=== PATIENT | male | born 1945 | race Caucasian/White ===

== ENCOUNTER 2020-09-07 11:09 | Outpatient (REF) | payer MEDICARE, SELFPAY ==
--- NOTE | ~2020-09-07 | XR_ITS ---
EXAMINATION: CHEST AND RIGHT RIB X-RAYS CLINICAL INFORMATION: Chest pain COMPARISON: Previous chest x-ray September 2006 TECHNIQUE: 2 views of the chest and 3 views of the right ribs FINDINGS: Chest: The cardiac silhouette does not appear enlarged. The thoracic aorta is slightly tortuous. Hilar and mediastinal contours are otherwise unremarkable. The lungs are clear. There is no pleural effusion or pneumothorax. There are degenerative changes of the thoracic spine. Right RIBS: No rib fracture or bone lesion is seen. XR/XR chest 2V IMPRESSION: No evidence for acute disease in the chest. No rib fracture seen.
--- NOTE | ~2020-09-07 | XR_ITS ---
EXAMINATION: CHEST AND RIGHT RIB X-RAYS CLINICAL INFORMATION: Chest pain COMPARISON: Previous chest x-ray September 2006 TECHNIQUE: 2 views of the chest and 3 views of the right ribs FINDINGS: Chest: The cardiac silhouette does not appear enlarged. The thoracic aorta is slightly tortuous. Hilar and mediastinal contours are otherwise unremarkable. The lungs are clear. There is no pleural effusion or pneumothorax. There are degenerative changes of the thoracic spine. Right RIBS: No rib fracture or bone lesion is seen. XR/XR ribs RT 2V IMPRESSION: No evidence for acute disease in the chest. No rib fracture seen.
== END 2020-09-07 11:10 | disposition home or self-care (01) ==
LOC: HO.XRAY 11:09
PROVIDERS: PCP Internal Medicine; Visit Provider Internal Medicine
DX: R07.89 Other chest pain (principal)
CPT/HCPCS: 71046; 71100

== ENCOUNTER 2020-11-11 13:26 | Outpatient (REF) | payer MEDICARE, SELFPAY ==
--- NOTE | 2020-11-11 15:08 | MHC.AU.AHA ---
Adult Audiological Evaluation Date of Visit: 11/11/20 Reason for Appointment: Audiological evaluation due to concern for decreased hearing. Mr. Booen has a long-standing history of asymmetrical hearing loss, worse in the left ear. He states that the hearing loss in the left ear was first diagnosed in childhood. Mr. Boone believes the hearing in his right is has decreased gradually since his last visit. He denies any changes to his medical history. Previous Hearing Test Results: [facility], 05/19/2018- Mild sloping to severe SNHL in the right ear. Severe to profound mixed hearing loss with no speech discrimination abilities in the left ear. Medical History: Medical History: Unremarkable Medical History Allergies: Lorazepam, tamsulosin Hearing Instrument History- Right Ear: Contracts Officer: Phonak Model: Bolero B50-M Serial Number: [id number] Battery Size: 312 Repair Warranty: 07/30/2021 Loss and Damage Warranty: 07/30/2021 Dispensed By: [facility] Date of Fittin05/19/2018 Hearing Instrument History- Left Ear: Contracts Officer: Phonak Model: CROS-B Serial Number: [id number] Battery Size: 312 Warranty: 07/30/2019 Loss and Damage Warranty: 07/30/2019 Dispensed By: [facility] Date of Fittin05/19/2018 Otoscopy: Right Ear: Unremarkable Left Ear: Unremarkable Tympanometry: Tympanometry performed due to: To assess integrity of the middle ear system Right Ear: Normal Middle Ear System (Type A) Left Ear: Normal Middle Ear System (Type A) Hearing Evaluation: Transducer(s) Used: Insert Earphones, Bone Conduction Method: Conventional Audiometry Stimuli Used: Pure Tones Right Ear: Description of Hearing: Mild sloping to profound sensorineural hearing loss from 250-8000 Hz. Left Ear: Description of Hearing: Severe hearing loss at 250 Hz, sloping to a profound mixed hearing loss from 500-8000 Hz. Speech Recognition Threshold (SRT): Method Used: Monitored Live Voice Stimuli Used: Spondee Words Right Ear: 40 dBHL Left Ear: Could not test- no speech discrimination abilities in the left ear. Word Discrimination: Method: Recorded Lists Word Lists Used: NU-6 Right Ear: 100% at 80 dBHL Left Ear: Could not test- no speech discrimination abilities in the left ear. Comparison: Compared to most recent evaluation: Minor decreases in hearing in the right ear. Stable in the left ear. Recommendations: Audiological re-evaluation in one year. Hearing aid maintenance performed today. Hearing aid(s) reprogrammed with updated test results. Diagnosis: Primary Diagnosis: H90.3 Bilateral Sensorineural Hearing Loss Services Performed: Comprehensive Audiological Evaluation (CPT 65410) Tympanometry (CPT 94663) Signature: Provider: Noemí Mcclellan, CCC-A
== END 2020-11-11 13:27 | disposition home or self-care (01) ==
LOC: HO.SH 13:26
PROVIDERS: Visit Provider Internal Medicine
DX: H90.3 Sensorineural hearing loss, bilateral (principal)
CPT/HCPCS: 92557; 92567

== ENCOUNTER → 2020-12-13 11:07 | Outpatient (BNVA) | payer MEDICARE, SELFPAY | PROVIDERS: PCP Internal Medicine; Visit Provider Internal Medicine | DX: I49.3 Ventricular premature depolarization (principal); R00.2 Palpitations | CPT/HCPCS: 93005; 99202 ==

== ENCOUNTER → 2020-12-27 13:57 | Outpatient (REF) | payer MEDICARE, SELFPAY ==
--- NOTE | 2020-12-27 14:00 | CA_ITS ---
Transthoracic Echocardiogram Patient (Last, First, Middle): Adan Boone L Gender: Male Date of : 1945 Age: 75 Procedure Date: 12/27/2020 Procedure Type: Transthoracic Echocardiogram Location: OP Height: 175.26 cm Weight: 81.65 kg BSA: 1.98 m2 Heart Rate: bpm BP: 120 / 70 mmHg [place] Bottom Maker: DSCrystal Referring MD: Janes Mullins MD Symptoms: R00.2 - Palpitations Study Quality: Good ECG Rhythm: Sinus Conclusions: - The left ventricular systolic function is normal. The visually estimated ejection fraction is between 65-70%. - No obvious valvular pathology seen on this study. Findings Left Ventricle Normal left ventricular cavity size. There is normal left ventricular wall thickness. The left ventricular systolic function is normal. The visually estimated ejection fraction is between 65-70%. There is no evidence of regional wall motion abnormalities. Diastolic function is normal for age. Right Ventricle Normal right ventricular cavity size. There is normal right ventricular systolic function. Atria The left atrium is normal in size. The right atrium is mildly dilated. Aortic Valve There is a normal trileaflet aortic valve. There is no aortic valve stenosis. There is no aortic valve regurgitation. Mitral Valve The mitral valve appears normal. There is trace mitral valve regurgitation. There is no mitral valve stenosis. Pulmonic Valve The pulmonic valve was not well visualized. Tricuspid Valve Normal tricuspid valve structure. There is trace tricuspid valve regurgitation. The pulmonary artery systolic pressure is normal. Great Vessels The aortic annulus, sinuses of valsalva, and asc aorta are normal in size. Venous The inferior vena cava is normal in size and collapses greater than 50% with inspiration. Pericardium/Pleural There is no evidence of pericardial effusion. Prior Study Comparison No significant change compared to prior study dated: 10/03/2006. RA enlargement previously noted. Recommendations, Care & Conclusions No obvious valvular pathology seen on this study. Measurements 2D Linear Measurements IVSd: 1.06 0.6-0.9/0.6-1.0 cm LVIDd: 4.20 3.9-5.3/4.2-5.9 cm LVIDd Index: 2.12 2.4-3.2/2.2-3.1 cm/m2 LVIDs: 2.80 2.0-3.6 cm LVPWd: 1.30 0.7-1.1 cm Ao Root: 3.30 2.1-3.5 cm LA Diam: 3.20 2.7-3.8/3.0-4.0 cm LAIDs Index: 1.62 1.5-2.3 cm/m2 LV Mass: 216.54 67-162/88-224 g LV Mass Index: 109.36 43-95/49-115 g/m2 LVOT Diam: 2.30 3.0+(-)1.3 cm 2D Systolic Function EF 4C: 64.80 >55% EF 2C: 79.20 >55% EF BiP: 73.40 >55% Mitral Valve MV Pk E: 0.39 MV PK A: 0.57 MV Decel Time: 332.00 E/A: 0.70 E'Lateral: 9.68 E'Medial: 8.16 E/E' Med: 4.80 E/E' Lat: 4.00 PHT: 97.00 MVA PHT: 2.27 Decel [place]: 1.18 Aortic Valve AoV Pk Carroll: 1.37 AoV Pk Grad: 8.00 LVOT LVOT Pk Carroll: 1.08 LVOT Mn Carroll: 0.67 LVOT VTI: 0.20 LVOT Pk Grad: 5.00 LVOT Mn Grad: 2.00 LVOT Diam: 2.30 LVOT Area: 4.15 Diastolic Function MV Pk E: 0.39 MV Pk A: 0.57 E/A: 0.70 E'Medial: 8.16 E/E' Med: 4.80 E' Laterial: 9.68 E/E' Lat: 4.00 Tricuspid Valve TR Pk Carroll: 2.52 TR Pk Grad: 25.00 RA Press: 3.00 RVSP: 28.00 Great Vessels Aorta Ao Root-2D: 3.30 2.0-3.7 cm Ao Asc: 3.10 2.1-3.4 cm Updated in Other Vendor System with Status of Final Janes Mullins MD electronically signed on 12/28/2020 10:06:05 AM with status of Final
== END ==
LOC: HO.CARD 13:57
PROVIDERS: PCP Internal Medicine; Visit Provider Internal Medicine
DX: R00.2 Palpitations (principal)
CPT/HCPCS: 93226; 93306

== ENCOUNTER → 2021-01-06 14:44 | Outpatient (BNVA) | payer MEDICARE, SELFPAY | PROVIDERS: PCP Internal Medicine; Visit Provider Internal Medicine ==

== ENCOUNTER → 2021-01-06 15:00 | Outpatient (REF) | payer MEDICARE, SELFPAY ==
--- NOTE | 2021-01-06 | ECG_ITS ---
Hook-up date: 2021-01-06 14:54:00 Duration: 47:59:00 Test Indications: PALPITATIONS Medications: 013030 QRS complexes 412 Ventricular ectopics which represent <1 % of total QRS comp. 206 Supraventricular ectopics which represent <1 % of total QRS comp. * Paced QRS complexs which represent % of total QRS comp. VENTRICULAR ECTOPY 404 Isolated 0 Bigeminal Cycles 4 Couplets 0 Runs 0 Beats in Runs * Beats LONGEST at * BPM at :: -- * Beats FASTEST at * BPM at :: -- SUPRAVENTRICULAR ECTOPY 170 Isolated 9 Couplets 5 Runs 18 Beats in Runs 5 Beats LONGEST at 108 BPM at 06:05:11 2021-01-08 3 Beats FASTEST at 126 BPM at 00:17:46 2021-01-08 HEART RATES 44 MIN at 05:45:23 2021-01-07 60 AVG 109 MAX at 09:33:02 2021-01-08 LONGEST RR 1.6000 secs at 01:13:01 2021-01-08 S-T LEVELS Channel 1 - 128 mm at 14:54:00 2021-01-06 - 128 mm at 14:54:00 2021-01-06 Channel 2 - 128 mm at 14:54:00 2021-01-06 - 128 mm at 14:54:00 2021-01-06 Channel 3 - 128 mm at 03:41:31 -- - 128 mm at 03:41:31 Underlying rhythm is sinus; Average ventricular rate 60/min; range 44-109/min; Rare PVCs with some couplets; Rare PACs; mostly isolated with very brief runs; Refused diary. Referred By: Yue Mo Overread By: YUE MO
== END ==
LOC: HO.CARD 15:00
PROVIDERS: Visit Provider Internal Medicine
DX: R00.2 Palpitations (principal)
CPT/HCPCS: 93226

== ENCOUNTER → 2021-02-02 14:00 | Outpatient (BNVA) | payer MEDICARE, SELFPAY | PROVIDERS: PCP Internal Medicine; Visit Provider Internal Medicine ==

== ENCOUNTER → 2021-02-02 14:45 | Outpatient (REF) | payer MEDICARE, SELFPAY ==
--- NOTE | 2021-02-02 14:52 | HM_ITS ---
Baseline rhythm is normal sinus rhythm with lower started of 39 beats per minute during sleeping hours. Maximum heart rate in sinus rhythm at 138 beats per minute with average heart rate of 63 beats per minute. There were no significant pauses noted. Intermittent episodes of atrial fibrillation noted with total burden of about 1%. Longest episode of atrial fibrillation was 3 hours and 22 minutes. Heart rate variable during atrial fibrillation with the fastest heart rate in 150 beats per minute. There were episodes reported as supraventricular tachycardia, however they are not prolonged in the longest episode was 15 beats. Rare isolated PVCs noted with total burden of 0.55%. There are no sustained ventricular arrhythmias noted. There were no patient reported events. MTDD
== END ==
LOC: HO.CARD 14:45
PROVIDERS: PCP Internal Medicine; Visit Provider Internal Medicine
DX: Z01.810 Encounter for preprocedural cardiovascular examination (principal); I49.3 Ventricular premature depolarization; I49.1 Atrial premature depolarization; R00.2 Palpitations
CPT/HCPCS: 93225; 93246; 99212

== ENCOUNTER 2021-02-10 11:36 | Outpatient (REF) | payer MEDICARE, SELFPAY | END 2021-02-10 11:37 | disposition home or self-care (01) | LOC: HO.LAB 11:36 | PROVIDERS: PCP Internal Medicine; Visit Provider Internal Medicine | DX: Z20.822 Contact with and (suspected) exposure to COVID-19 (principal) | CPT/HCPCS: C9803; U0003; U0005 ==

== ENCOUNTER → 2021-02-15 09:49 | Outpatient (REF) | payer MEDICARE, SELFPAY ==
--- NOTE | ~2021-02-15 | NM_ITS ---
EXERCISE MYOCARDIAL PERFUSION STUDY INDICATION: Preoperative evaluation, PVCs TECHNIQUE: The patient was brought in for an exercise perfusion study on 02/15/2021. Patient performed exercise as per Danny protocol and was injected 25 mCi of sestamibi once target heart rate was achieved. Images were obtained using the SPECT gamma camera interlaced with the gating device. Images were obtained in supine position. Resting perfusion study was performed on 02/21/2021. Patient was administered 25 mCi of sestamibi intravenously at rest. Images were then obtained in supine position. Total DLP 91mGy-cm. Images were processed with the software and compared side to side in short axis, horizontal long axis and vertical long axis views. FINDINGS: Raw images were reviewed. The stress perfusion study showed mildly diminished tracer uptake in the basal inferior and inferolateral wall. There is improvement with CT attenuation correction and hence suggesting diaphragmatic attenuation artifact. The gated study shows normal LV systolic function with calculated LVEF of 73%. LV cavity is normal in size. The gated study shows normal wall thickening and contraction of segments. Resting study shows mildly diminished tracer uptake in the basal inferior and inferolateral wall. There is improvement with CT attenuation correction and hence suggesting diaphragmatic attenuation artifact. Gating at rest reveals normal wall motion with ejection fraction at 64%. The findings are consistent with fixed defect in the basal inferior and inferolateral wall suspected to be from diaphragmatic attenuation artifact. NM/NM cardiolite stress test IMPRESSION: 1. Myocardial perfusion imaging study shows no evidence of any ischemia or infarction. Likely normal perfusion. 2. Gated LVEF is 73% during stress and 64% during rest. 3. Transient ischemic dilatation not present. EKG component of the test reported separately.
--- NOTE | 2021-02-15 09:52 | CA_ITS ---
Acquisition Time: 2021-02-15 09:48:19 Total Exercise Time: 00:06:49 Test Indications: PREOP Medications: SEE CHART Protocol: RAISA Max HR: 137 BPM 95% of Pred: 143 BPM Max BP: 140/082 mmHG Max Work Load: 8.2 METS Exercise stress test with exercise 6 min 49 sec of Raisa protocol, without anginal symptoms or palpitations, with frequent PACs which increased with exercise, isolated PVCs throughout test, cuplets noted in stage 3, with normotensive response to exercise, without EKG changes meeting criteria for ischemia. Nuclear images pending. Test reviewed with Dr Guzman, Referred By: Janes Mullins Overread By: AUBRIE LAGUNA
== END ==
LOC: HO.CARD 09:49
PROVIDERS: Visit Provider Internal Medicine
DX: I49.3 Ventricular premature depolarization (principal)
CPT/HCPCS: 78452; 93017; A9500

== ENCOUNTER → 2021-03-06 14:35 | Outpatient (BNVA) | payer MEDICARE, SELFPAY | PROVIDERS: PCP Internal Medicine; Referring Provider Internal Medicine; Visit Provider Internal Medicine | DX: Z01.810 Encounter for preprocedural cardiovascular examination (principal); I48.0 Paroxysmal atrial fibrillation; I49.3 Ventricular premature depolarization; I49.1 Atrial premature depolarization; R00.2 Palpitations; Z87.891 Personal history of nicotine dependence; Z88.8 Allergy status to other drugs, medicaments and biological substances | CPT/HCPCS: 99212 ==

== ENCOUNTER 2021-03-21 07:27 | Outpatient (REF) | payer MEDICARE, SELFPAY ==
--- NOTE | ~2021-03-21 | XR_ITS ---
EXAMINATION: XR SHOULDER, RIGHT CLINICAL INFORMATION: Pain COMPARISON: Previous x-ray July 2019 TECHNIQUE: 3 views of the right shoulder. FINDINGS: Bone alignment is normal. No fracture or dislocation is seen. The glenohumeral joint is normal. There is mild arthritis at the acromioclavicular joint. Soft tissues are unremarkable. XR/XR shoulder RT min 2V IMPRESSION: Mild arthritis at the acromioclavicular joint.
== END 2021-03-21 07:28 | disposition home or self-care (01) ==
LOC: HO.HOSX 07:27
PROVIDERS: Visit Provider Physician Assistant
DX: M75.101 Unspecified rotator cuff tear or rupture of right shoulder, not specified as traumatic (principal)
CPT/HCPCS: 73030; 99212; J1040

== ENCOUNTER 2021-06-02 10:23 | Outpatient (REF) | payer SELFPAY | END 2021-06-02 10:24 | disposition home or self-care (01) | LOC: HO.HAP 10:23 | PROVIDERS: Visit Provider Internal Medicine | DX: Z13.89 Encounter for screening for other disorder (principal) ==

== ENCOUNTER 2021-06-15 13:54 | Outpatient (REF) | payer SELFPAY | END 2021-06-15 13:55 | disposition home or self-care (01) | LOC: HO.HAP 13:54 | PROVIDERS: Visit Provider Internal Medicine | DX: Z46.1 Encounter for fitting and adjustment of hearing aid (principal); H90.3 Sensorineural hearing loss, bilateral | CPT/HCPCS: V5264 ==

== ENCOUNTER → 2021-06-29 13:18 | Outpatient (BNVA) | payer MEDICARE, SELFPAY | PROVIDERS: PCP Internal Medicine; Visit Provider Internal Medicine | DX: I48.0 Paroxysmal atrial fibrillation (principal); I49.3 Ventricular premature depolarization; I49.1 Atrial premature depolarization | CPT/HCPCS: 99212 ==

== ENCOUNTER 2021-09-26 12:48 | Outpatient (REF) | payer SELFPAY | END 2021-09-26 12:49 | disposition home or self-care (01) | LOC: HO.HAP 12:48 | PROVIDERS: Visit Provider Internal Medicine | DX: Z46.1 Encounter for fitting and adjustment of hearing aid (principal); H90.3 Sensorineural hearing loss, bilateral | CPT/HCPCS: 99499 ==

== ENCOUNTER → 2022-02-05 14:24 | Outpatient (BNVA) | payer MEDICARE, SELFPAY | PROVIDERS: PCP Internal Medicine; Visit Provider Internal Medicine | DX: I48.0 Paroxysmal atrial fibrillation (principal); I49.3 Ventricular premature depolarization; I49.1 Atrial premature depolarization; Z79.899 Other long term (current) drug therapy; Z79.01 Long term (current) use of anticoagulants; Z79.2 Long term (current) use of antibiotics | CPT/HCPCS: 93005; 99212 ==

== ENCOUNTER 2022-04-23 09:22 | Outpatient (REF) | payer SELFPAY | END 2022-04-23 09:23 | disposition home or self-care (01) | LOC: HO.HAP 09:22 | PROVIDERS: Visit Provider Internal Medicine | DX: Z46.1 Encounter for fitting and adjustment of hearing aid (principal); H90.3 Sensorineural hearing loss, bilateral | CPT/HCPCS: 92700 ==

== ENCOUNTER 2022-08-14 14:15 | Outpatient (REF) | payer SELFPAY | END 2022-08-14 14:16 | disposition home or self-care (01) | LOC: HO.HAP 14:15 | DX: Z13.89 Encounter for screening for other disorder (principal) ==

== ENCOUNTER 2022-08-14 14:19 | Outpatient (REF) | payer SELFPAY ==
--- NOTE | 2022-08-14 16:47 | MHC.AU.HA3 ---
Hearing Instrument Follow-Up- Binaural Date of Visit: 08/14/22 Right Ear: Make, Model, Color, Serial Number: Carlos Silva [id number] SN: [id number] Color: Silver Gonzalez Transport Technician Repair Warranty: 07/30/2021 Transport Technician Loss and Damage Warranty: 07/30/2021 [facility] Service Plan: 07/30/2021 Battery Size: 312 Garbage Worker/Slim Tube: Size 2 slim tube Earmold/Dome/CShell/SlimTip:Slim tip SN: [id number] Kaitlin: 09/23/2018 Dispensed By: [facility] Date of Fittin05/19/2018 Left Ear: Make, Model, Color, Serial Number: Carlos CROS B-312 SN: [id number] Color: Silver Gonzalez Transport Technician Repair Warranty: 07/30/2019 Transport Technician Loss and Damage Warranty: 07/30/2019 [facility] Service Plan: 07/30/2021 Battery Size: 312 Garbage Worker/Slim Tube: 2 CROS wire Earmold/Dome/CShell/SlimTip: Slim tip SN: [id number] Kaitlin: 10/06/2021 Dispensed By: [facility] Date of Fittin05/19/2018 Follow-Up Summary: Adan's left slim tip mold broke off from the CROS wire. Quoted $65.00 for new slim tip mold to repair. Adan reported he relies on the CROS device and prefers to have the custom earmold so he approved the repair. Provided a #2 CROS slim tube to use with a small open dome in the meantime. Called [employer] - tracee still on file, will order from scanned impression. Adan also reported he is ready to discuss new hearing aids. Advised need updated hearing test. Recommendations: Patient will be contacted when materials have arrived. Adan will need appointment once earmold arrives to replace CROS tubing/dome with new CROS wire/earmold. 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 Recommendations (Other): Adan will obtain order from PCP for updated hearing evaluation to begin the process for new hearing aids. Diagnosis Code(s): Primary Diagnosis: H90.3 Bilateral Sensorineural Hearing Loss Signature: Provider: Sabra Alcantara, [facility]
== END 2022-08-14 14:20 | disposition home or self-care (01) ==
LOC: HO.HAP 14:19
PROVIDERS: Visit Provider Internal Medicine
DX: Z13.89 Encounter for screening for other disorder (principal)

== ENCOUNTER 2022-08-28 15:39 | Outpatient (REF) | payer SELFPAY ==
--- NOTE | 2022-08-29 09:21 | MHC.AU.HA3 ---
Hearing Instrument Follow-Up- Binaural Date of Visit: 08/28/22 Right Ear: Make, Model, Color, Serial Number: Carlos Silva [id number] SN: [id number] Color: Silver Gonzalez Senior Mechanical Estimator Repair Warranty: 07/30/2021 Senior Mechanical Estimator Loss and Damage Warranty: 07/30/2021 [facility] Service Plan: 07/30/2021 Battery Size: 312 Manufacturing Business Analyst/Slim Tube: Size 2 slim tube Earmold/Dome/CShell/SlimTip:Slim tip SN: [id number] Kaitlin: 09/23/2018 Dispensed By: [facility] Date of Fittin05/19/2018 Left Ear: Make, Model, Color, Serial Number: Carlos CROS B-312 SN: [id number] Color: Silver Gonzalez Senior Mechanical Estimator Repair Warranty: 07/30/2019 Senior Mechanical Estimator Loss and Damage Warranty: 07/30/2019 [facility] Service Plan: 07/30/2021 Battery Size: 312 Manufacturing Business Analyst/Slim Tube: 2 CROS wire Earmold/Dome/CShell/SlimTip: CROS tip - SN: [id number] Kaitlin: 11/17/2022 Dispensed By: [facility] Date of Fittin05/19/2018 Follow-Up Summary: Adan picked up his new CROS tip ear mold for the left ear. Reportedly comfortable in office. Advised of warranty if any issues arise. Paid $65.00 Recommendations: Hearing instrument maintenance in 6 months, or sooner if needed. Please contact our clinic with any questions or concerns. Recommendations (Other): Adan has updated audiological evaluation scheduled in October 2022. Diagnosis Code(s): Primary Diagnosis: H90.3 Bilateral Sensorineural Hearing Loss Signature: Provider: Sabra Alcantara, [facility]
== END 2022-08-28 15:40 | disposition home or self-care (01) ==
LOC: HO.HAP 15:39
PROVIDERS: Visit Provider Internal Medicine
DX: Z46.1 Encounter for fitting and adjustment of hearing aid (principal); H90.3 Sensorineural hearing loss, bilateral
CPT/HCPCS: V5264

== ENCOUNTER 2022-09-27 08:03 | Outpatient (REF) | payer MEDICARE, SELFPAY ==
[2022-09-27 11:23] LABS: MANUAL DIFF FLAG NO
[2022-09-27 11:47] LABS: Basophils Absolute Auto 0.1 X10*3/uL (0.0-0.2); Basophils Percent Auto 1.6 % (0-2); Eosinophils Absolute Auto 0.2 X10*3/uL (0.0-0.4); Eosinophils Percent Auto 3.4 % (0-4); Hematocrit 46.7 % (42.0-52.0); Hemoglobin 15.5 g/dl (14.0-18.0); Imm Gran Abs Auto 0.03 X10*3/uL (0.00-0.03); Imm Gran Pct Auto 0.6 % (0.0-0.4); Lymphocytes Percent Auto 39.1 % (20-40); Mean Corpuscular HGB Conc 33.2 g/dl (31.0-36.0); Mean Corpuscular Hemoglobin 29.3 pg (27.0-33.0); Mean Corpuscular Volume 88.3 fL (80.0-98.0); Mean Platelet Volume 9.7 fL (9.4-12.4); Monocytes Absolute Auto 0.6 X10*3/uL (0.1-1.2); Monocytes Percent Auto 11.4 % (2-11); Neutrophils Absolute Auto 2.2 x10*3/uL (2.0-8.3); Neutrophils Percent Auto 43.9 % (45-73); Platelet Count 233 X10*3/uL (160-400); Red Blood Count 5.29 X10*6/uL (4.60-5.80); Red Cell Distribution Width 12.8 % (11.0-16.0); White Blood Count 5.1 X10*3/uL (4.8-10.8)
[2022-09-27 12:20] LABS: Alanine Aminotransferase 20 U/L (0-40); Albumin Level 4.2 g/dL (3.5-5.0); Alkaline Phosphatase 87 U/L (39-117); Anion Gap 9 (12-20); Aspartate Amino Transferase 24 U/L (5-37); Bilirubin Total 1.3 mg/dL (0.0-1.0); Blood Urea Nitrogen 19 mg/dL (9-16); Calcium 9.3 mg/dL (8.4-10.2); Carbon Dioxide 31 mmol/L (22-29); Chloride 107 mmol/L (96-108); Cholesterol 160 mg/dL; Estimated Glomerular Filt Rate > 60; Glucose Fasting 94 mg/dL (60-99); HDL Cholesterol 51 mg/dL; LDL Cholesterol Calculated 95 mg/dl; Potassium 4.6 mmol/L (3.3-5.1); Sodium 142 mmol/L (135-145); Thyroid Stimulating Hormone 1.44 uIU/mL (0.32-4.0); Total Protein 6.4 g/dL (6.5-8.0); Triglycerides 71 mg/dL
== END 2022-09-27 08:04 | disposition home or self-care (01) ==
LOC: HO.HMGCLDS 08:03
PROVIDERS: PCP Internal Medicine; Visit Provider Internal Medicine
DX: Z00.00 Encounter for general adult medical examination without abnormal findings (principal); N40.0 Benign prostatic hyperplasia without lower urinary tract symptoms; I48.0 Paroxysmal atrial fibrillation
CPT/HCPCS: 36415; 80053; 80061; 84443; 85025

== ENCOUNTER 2023-01-15 13:31 | Outpatient (REF) | payer SELFPAY | END 2023-01-15 13:32 | disposition home or self-care (01) | LOC: HO.HAP 13:31 | PROVIDERS: Visit Provider Internal Medicine | DX: Z46.1 Encounter for fitting and adjustment of hearing aid (principal); H90.3 Sensorineural hearing loss, bilateral | CPT/HCPCS: 92592 ==

== ENCOUNTER 2023-01-18 09:57 | Outpatient (REF) | payer SELFPAY | END 2023-01-18 09:58 | disposition home or self-care (01) | LOC: HO.HAP 09:57 | PROVIDERS: Visit Provider Internal Medicine | DX: Z46.1 Encounter for fitting and adjustment of hearing aid (principal); H90.3 Sensorineural hearing loss, bilateral | CPT/HCPCS: 92593 ==

== ENCOUNTER 2023-02-13 14:57 | Outpatient (REF) | payer MEDICARE, SELFPAY | END 2023-02-13 14:58 | disposition home or self-care (01) | LOC: HO.SH 14:57 | PROVIDERS: Visit Provider Internal Medicine | DX: Z01.118 Encounter for examination of ears and hearing with other abnormal findings (principal); H90.A12 Conductive hearing loss, unilateral, left ear with restricted hearing on the contralateral side | CPT/HCPCS: 92557; 92567 ==

== ENCOUNTER 2023-02-26 14:14 | Outpatient (AMB) | payer MEDICARE, SELFPAY ==
--- NOTE | 2023-02-26 14:21 | A.OFFVIS_ITS ---
Intake Vital Signs 02/26/23 14:22 Height 5 ft 9 in Weight 173 lb 11.588 oz BMI 25.7 BP 90/54 L Blood Pressure Location Lt brachial Position Sitting Pulse 56 Intake Visit Reasons: 1 year follow up Intake Note: 1 year follow up w/ EKG Plastic Panel Installer Required: No Accompanied by: Spouse Allergies lorazepam [From ATIVAN] Allergy (Unknown, Verified 02/26/23 14:22) CONFUSION Medication List - Last Reconciled 02/26/23 by Janes Mullins MD apixaban (Eliquis) 5 mg PO BID finasteride 5 mg PO DAILY metoprolol succinate ER (Toprol XL) 25 mg orally one tab in the AM and half a tab in the PM; oxybutynin chloride ER 5 mg PO DAILY tamsulosin 0.4 mg PO DAILY HPI HPI Comments History of Present Illness Details Adan returns for follow-up regarding paroxysmal atrial fibrillation. Overall, he is doing fine. Remains on beta-blockers and anticoagulation. Rare palpitations and nothing really bothersome. No other cardiac symptoms at this time. FOR[facility]LY [facility], [facility]1983 Surgical History History of appendectomy History of arthroscopy of both knees History of cholecystectomy Family History Father No problems noted. Mother No problems noted. Social History Patient Tobacco Use Status: Former Tobacco user Current occupational status: retired Current occupation: rt handed Review of Systems Const Denies weakness ENT Denies dizziness Card Denies chest pain, Denies chest pain with activity, Denies syncope, Denies rapid heart rate, Denies pedal edema, Denies edema, Denies leg edema, Denies lightheadedness, Denies palpitations, Denies dyspnea, Denies dyspnea on exertion and Denies orthopnea Resp Denies cough, Denies dyspnea and Denies dyspnea on exertion GI Denies hematochezia and Denies change in stool character Musc Denies abnormal gait, Denies muscle cramps, Denies muscle weakness, Denies num bness, Denies radiating pain into limb and Denies tingling Neuro Denies abnormal gait, Denies dizziness, Denies syncope, Denies numbness, Denies tingling and Denies weakness Endo Denies palpitations Physical Exam Vital Signs: Last Vital Signs Pulse 56 02/26/23 14:22 BP 90/54 L 02/26/23 14:22 BMI result Body Mass Index 25.7 Const General: comfortable and no acute distress Orientation/consciousness: patient oriented x3 HEENT Other: Unremarkable Head: Yes normal to inspection Neck Neck: Yes normal visual inspection Chest Chest palpation & inspection: normal inspection of the chest Resp Auscultation: clear to auscultation bilaterally Cardio Palpation: normal PMI Heart sounds: S1 normal heart sound present, S2 normal heart sound present, no gallops, no murmurs and no rubs GI Palpation (GI): Soft to palpation Back/Spine/Pelvis Other: unremarkable Skin General skin exam: no rashes or lesions noted Neuro General: patient oriented x3 Extrem General: Yes normal to inspection Psych Mental Status: mental status grossly normal Office Procedures EKG Details: EKG with sinus rhythm at 58/Min; no significant ST-T changes and otherwise unremarkable[place]. [address]-[id number], Complete Assessment & Plan Assessment & Plan (1) PAF (paroxysmal atrial fibrillation): Code(s): I48.0 - Paroxysmal atrial fibrillation (2) PVC (premature ventricular contraction): Code(s): I49.3 - Ventricular premature depolarization (3) PAC (premature atrial contraction): Code(s): I49.1 - Atrial premature depolarization Plan Cardiac studies reviewed. Echocardiogram with normal LVEF, 65-70%; mild right atrial enlargement, but otherwise unremarkable. Even his prior study from several years ago had mentioned the right atrial enlargement. Event monitor from 2006 had shown PVCs. Holter shows underlying sinus rhythm with an average rate of 60/Min; there were PACs and PVCs but low burden. 14 day Holter shows evidence of paroxysmal atrial fibrillation. Low burden. Myocardial perfusion imaging study shows no ischemia or infarction. Overall, he is stable on beta-blockers on the current dose. May continue the same. Continue anticoagulation without changes. Most recent hemoglobin as well as renal function are unremarkable. These may be followed periodically and okay to do through PCP to consolidate. Follow-up in 1 year. In the interim, he will contact us if any concerns. Coding Level of Care Code Est Pt Level 3 (24044) Diagnoses PAF (paroxysmal atrial fibrillation) I48.0 PVC (premature ventricular contraction) I49.3 PAC (premature atrial contraction) I49.1 CPT Codes EKG - CPT: 02781-[id number], Complete ([id number])
[2023-02-26 14:22] VITALS: BP 90/54; PULSE 56; BMI 25.7
== END 2023-02-26 14:49 | disposition home or self-care (01) ==
PROVIDERS: PCP Internal Medicine; Referring Provider Internal Medicine; Visit Provider Internal Medicine
DX: I48.0 Paroxysmal atrial fibrillation (principal); I49.3 Ventricular premature depolarization; I49.1 Atrial premature depolarization
CPT/HCPCS: 93010; 99213

== ENCOUNTER → 2023-02-26 14:14 | Outpatient (BNVA) | payer MEDICARE, SELFPAY | PROVIDERS: PCP Internal Medicine; Referring Provider Internal Medicine; Visit Provider Internal Medicine | DX: I48.0 Paroxysmal atrial fibrillation (principal); I49.3 Ventricular premature depolarization; I49.1 Atrial premature depolarization | CPT/HCPCS: 93005; 99212 ==

== ENCOUNTER 2023-04-12 14:18 | Outpatient (REF) | payer SELFPAY ==
--- NOTE | 2023-04-15 08:08 | MHC.AU.CER ---
Cerumen Removal- Binaural Date of Visit: 04/12/23 Medical Conditions: Fullness in Ear(s) Medications: Blood Thinners Procedure: Right Ear: Prior to Removal: Significant Cerumen Present Outcome of Procedure: Very little to no cerumen was able to be removed. Other: Used EarWax MD drops; Attempted curette and suction - Cerumen too hard and deep to proceed. Given patient on blood thinning medication, discontinued procedure and referred to PCP or ENT. Left Ear: Minimal Cerumen Present Other: Wax removal not warranted due to minimal cerumen present Recommendations: Follow-up with PCP or ENT for further cerumen removal. Diagnosis Code(s): Primary Diagnosis: H90.3 Bilateral Sensorineural Hearing Loss Signature: Provider: Sabra Alcantara, [facility]
== END 2023-04-12 14:19 | disposition home or self-care (01) ==
LOC: HO.HAP 14:18
PROVIDERS: Visit Provider Internal Medicine
DX: Z13.89 Encounter for screening for other disorder (principal)

== ENCOUNTER 2023-10-28 06:42 | Outpatient (REF) | payer MEDICARE, SELFPAY ==
[2023-10-28 07:07] LABS: MANUAL DIFF FLAG NO
[2023-10-28 07:50] LABS: Eosinophils Absolute Auto 0.1 X10*3/uL (0.0-0.4); Eosinophils Percent Auto 1.9 % (0-4); Hematocrit 43.9 % (42.0-52.0); Hemoglobin 14.6 g/dl (14.0-18.0); Imm Gran Abs Auto 0.01 X10*3/uL (0.00-0.03); Imm Gran Pct Auto 0.2 % (0.0-0.4); Lymphocytes Absolute Auto 1.5 X10*3/uL (1.2-4.9); Lymphocytes Percent Auto 36.5 % (20-40); Mean Corpuscular HGB Conc 33.3 g/dl (31.0-36.0); Mean Corpuscular Hemoglobin 29.3 pg (27.0-33.0); Mean Corpuscular Volume 88.2 fL (80.0-98.0); Mean Platelet Volume 9.8 fL (9.4-12.4); Monocytes Absolute Auto 0.6 X10*3/uL (0.1-1.2); Monocytes Percent Auto 14.4 % (2-11); Neutrophils Absolute Auto 1.9 x10*3/uL (2.0-8.3); Platelet Count 172 X10*3/uL (160-400); Red Blood Count 4.98 X10*6/uL (4.60-5.80); Red Cell Distribution Width 12.8 % (11.0-16.0); White Blood Count 4.2 X10*3/uL (4.8-10.8)
[2023-10-28 08:41] LABS: Alanine Aminotransferase 28 U/L (0-40); Albumin Level 3.8 g/dL (3.5-5.0); Alkaline Phosphatase 76 U/L (39-117); Anion Gap 13 (12-20); Aspartate Amino Transferase 28 U/L (5-37); Bilirubin Total 0.5 mg/dL (0.0-1.0); Blood Urea Nitrogen 13 mg/dL (9-16); Calcium 9.4 mg/dL (8.4-10.2); Carbon Dioxide 27 mmol/L (22-29); Chloride 108 mmol/L (96-108); Cholesterol 117 mg/dL (<200); Estimated Glomerular Filt Rate > 60; Glucose Fasting 95 mg/dL (60-99); HDL Cholesterol 47 mg/dL (>40); LDL Cholesterol Calculated 55 mg/dL (<100); Potassium 3.8 mmol/L (3.3-5.1); Sodium 144 mmol/L (135-145); Total Protein 6.5 g/dL (6.5-8.0); Triglycerides 76 mg/dL (<150)
[2023-10-28 09:00] LABS: Folate 8.9 ng/mL (> or = 4.0); Vitamin B12 365 pg/mL (200-900)
== END 2023-10-28 06:43 | disposition home or self-care (01) ==
LOC: HO.LAB 06:42
PROVIDERS: PCP Internal Medicine; Visit Provider Internal Medicine
DX: R42 Dizziness and giddiness (principal); I48.0 Paroxysmal atrial fibrillation; N40.0 Benign prostatic hyperplasia without lower urinary tract symptoms
CPT/HCPCS: 36415; 80053; 80061; 82607; 82746; 84443; 85025

== ENCOUNTER 2023-11-11 10:54 | Outpatient (REF) | payer SELFPAY ==
--- NOTE | 2023-11-11 11:39 | MHC.AU.HA3 ---
Hearing Instrument Follow-Up- Binaural Date of Visit: 11/11/23 Right Ear: Make, Model, Color, Serial Number: Carlos Silva [id number] SN: [id number] Color: Silver Gonzalez Manufacturing Lab Technician Repair Warranty: 07/30/2021 Manufacturing Lab Technician Loss and Damage Warranty: 07/30/2021 [facility] Service Plan: 07/30/2021 Battery Size: 312 Guyline Operator/Slim Tube: Size 2 slim tube Earmold/Dome/CShell/SlimTip:Slim tip SN: [id number] Kaitlin: 09/23/2018 Type of Wax Guard: Dispensed By: [facility] Date of Fittin05/19/2018 Left Ear: Make, Model, Color, Serial Number: Carlos [place] B-312 SN: [id number] Color: Silver Gonzalez Manufacturing Lab Technician Repair Warranty: 07/30/2019 Manufacturing Lab Technician Loss and Damage Warranty: 07/30/2019 [facility] Service Plan: 07/30/2021 Battery Size: 312 Guyline Operator/Slim Tube: 2 CROS wire Earmold/Dome/CShell/SlimTip: CROS tip - SN: [id number] Kaitlin: 11/17/2022 Type of Wax Guard: Dispensed By: [facility] Date of Fittin05/19/2018 Follow-Up Summary: Right aid dropped off with broken tube. Cleaned aid, earmold, replaced tube. Listening check positive. Recommendations: Recommendations: Hearing instrument follow-up or maintenance as needed. Diagnosis Code(s): Primary Diagnosis: H90.3 Bilateral Sensorineural Hearing Loss Signature: Provider: Sabra Del Real, [facility]
== END 2023-11-11 10:55 | disposition home or self-care (01) ==
LOC: HO.HAP 10:54
PROVIDERS: Visit Provider Internal Medicine
DX: Z46.1 Encounter for fitting and adjustment of hearing aid (principal); H90.3 Sensorineural hearing loss, bilateral
CPT/HCPCS: 92593

== ENCOUNTER 2023-11-13 11:00 | Outpatient (REF) | payer SELFPAY ==
--- NOTE | 2023-11-13 11:06 | MHC.AU.HA3 ---
Hearing Instrument Follow-Up- Binaural Date of Visit: 11/13/23 Right Ear: Make, Model, Color, Serial Number: Carlos Silva [id number] SN: [id number] Color: Silver Gonzalez Appraiser Repair Warranty: 07/30/2021 Appraiser Loss and Damage Warranty: 07/30/2021 [facility] Service Plan: 07/30/2021 Battery Size: 312 Exterminator Termite/Slim Tube: Size 2 slim tube Earmold/Dome/CShell/SlimTip:Slim tip SN: [id number] Kaitlin: 09/23/2018 Dispensed By: [facility] Date of Fittin05/19/2018 Left Ear: Make, Model, Color, Serial Number: Carlos NAPOLES [id number] SN: [id number] Color: Silver Gonzalez Appraiser Repair Warranty: 07/30/2019 Appraiser Loss and Damage Warranty: 07/30/2019 [facility] Service Plan: 07/30/2021 Battery Size: 312 Exterminator Termite/Slim Tube: 2 CROS wire Earmold/Dome/CShell/SlimTip: CROS tip - SN: [id number] Kaitlin: 11/17/2022 Dispensed By: [facility] Date of Fittin05/19/2018 Follow-Up Summary: PT walked in with right slim tip off slim tube. Just picked aid up from drop off slim tube replacement yesterday. Gasket that holds the tube is not holding in the mold. Glued the gasket into the mold. Let it set about 15 minutes. Appears to be holding. Molds are 5+ years old, would advise replacing if problems persist. Recommendations: Recommendations: Patient will call if problems persist. Diagnosis Code(s): Primary Diagnosis: H90.3 Bilateral Sensorineural Hearing Loss Signature: Provider: Sabra Del Real, [facility]
== END 2023-11-13 11:01 | disposition home or self-care (01) ==
LOC: HO.HAP 11:00
PROVIDERS: Visit Provider Internal Medicine
DX: Z13.89 Encounter for screening for other disorder (principal)

== ENCOUNTER 2024-03-02 14:14 | Outpatient (AMB) | payer MEDICARE, SELFPAY ==
--- NOTE | 2024-03-02 14:16 | A.OFFVIS_ITS ---
Vital Signs 03/02/24 14:17 Height 5 ft 9 in Weight 171 lb 15.369 oz BMI 25.4 BP 110/60 Blood Pressure Location Lt brachial Position Sitting Pulse 57 Pulse Source Monitor Intake Visit Reasons: 1 YR FOLLOW UP Allergies lorazepam [From ATIVAN] Allergy (Unknown, Verified 02/26/23 14:22) CONFUSION Medication List - Last Reconciled 03/02/24 by Janes Mullins MD apixaban (Eliquis) 5 mg PO BID finasteride 5 mg PO DAILY metoprolol succinate ER (Toprol XL) 25 mg PO DIRECTED 90 days HPI Comments Details: Adan returns for follow-up regarding paroxysmal atrial fibrillation. No cardiac symptoms and he is doing fine. FORMERLY [facility] Surgical History History of appendectomy History of arthroscopy of both knees History of cholecystectomy Family History Father No problems noted. Mother No problems noted. Social History Patient Tobacco Use Status: Former Tobacco user Current occupational status: retired Current occupation: rt handed Review of Systems Const Denies weakness ENT Denies dizziness Card Denies chest pain, Denies chest pain with activity, Denies syncope, Denies rapid heart rate, Denies pedal edema, Denies edema, Denies leg edema, Denies lightheadedness, Denies palpitations, Denies dyspnea, Denies dyspnea on exertion and Denies orthopnea Resp Denies cough, Denies dyspnea and Denies dyspnea on exertion GI Denies hematochezia and Denies change in stool character Musc Denies abnormal gait, Denies muscle cramps, Denies muscle weakness, Denies numbness, Denies radiating pain into limb and Denies tingling Neuro Denies abnormal gait, Denies dizziness, Denies syncope, Denies numbness, Denies tingling and Denies weakness Endo Denies palpitations Physical Exam Vital Signs: Last Vital Signs Pulse 57 03/02/24 14:17 BP 110/60 03/02/24 14:17 BMI result Body Mass Index 25.4 Const General: comfortable and no acute distress Orientation/consciousness: patient oriented x3 HEENT Other: Unremarkable Head: Yes normal to inspection Neck Neck: Yes normal visual inspection Chest Chest palpation & inspection: normal inspection of the chest Resp Auscultation: clear to auscultation bilaterally Cardio Palpation: normal PMI Heart sounds: S1 normal heart sound present, S2 normal heart sound present, no gallops, no murmurs and no rubs GI Palpation (GI): Soft to palpation Back/Spine/Pelvis Other: unremarkable Skin General skin exam: no rashes or lesions noted Neuro General: patient oriented x3 Extrem General: Yes normal to inspection Psych Mental Status: mental status grossly normal Office Procedures EKG Details: EKG with underlying sinus bradycardia 57/Min; no significant ST-T changes and otherwise unremarkable[place] [address]-Epcbeffitmagracks, Complete Assessment & Plan Assessment & Plan (1) PAF (paroxysmal atrial fibrillation): Code(s): I48.0 - Paroxysmal atrial fibrillation Category: Medical (2) PVC (premature ventricular contraction): Code(s): I49.3 - Ventricular premature depolarization Category: Medical (3) PAC (premature atrial contraction): Code(s): I49.1 - Atrial premature depolarization Category: Medical Plan Cardiac studies reviewed. Echocardiogram 2020 with normal LVEF, 65-70%; mild right atrial enlargement, but otherwise unremarkable. Even his prior study from several years ago had mentioned the right atrial enlargement. Event monitor from 2006 had shown PVCs. Holter shows underlying sinus rhythm with an average rate of 60/Min; there were PACs and PVCs but low burden. 14 day Holter from 2006 shows evidence of paroxysmal atrial fibrillation. Low burden. Myocardial perfusion imaging study 2020 shows no ischemia or infarction. He may remain on beta-blockers and anticoagulation without changes. Labs are stable. Follow-up labs are getting done through his own PCP. Follow-up in 1 year. In the interim, call with concerns. Coding Level of Care Code Est Pt Level 3 (37519) Diagnoses PAF (paroxysmal atrial fibrillation) I48.0 PVC (premature ventricular contraction) I49.3 PAC (premature atrial contraction) I49.1 CPT Codes EKG - CPT: 59576-Xyvtdejjjaanzsopy, Complete ([id number])
[2024-03-02 14:17] VITALS: BP 110/60; PULSE 57; BMI 25.4
== END 2024-03-02 14:37 | disposition home or self-care (01) ==
PROVIDERS: PCP Internal Medicine; Visit Provider Internal Medicine
DX: I48.0 Paroxysmal atrial fibrillation (principal); I49.3 Ventricular premature depolarization; I49.1 Atrial premature depolarization
CPT/HCPCS: 93010; 99213

== ENCOUNTER → 2024-03-02 14:14 | Outpatient (BNVA) | payer MEDICARE, SELFPAY | PROVIDERS: PCP Internal Medicine; Visit Provider Internal Medicine | DX: I48.0 Paroxysmal atrial fibrillation (principal); I49.3 Ventricular premature depolarization | CPT/HCPCS: 93005; 99212 ==

== ENCOUNTER 2024-03-09 12:53 | Outpatient (REF) | payer SELFPAY ==
--- NOTE | 2024-03-09 15:50 | MHC.AU.HA3 ---
Hearing Instrument Follow-Up- Binaural Date of Visit: 03/09/24 Right Ear: Make, Model, Color, Serial Number: Carlos Silva [id number] SN: [id number] Color: Silver Gonzalez Outpatient Dietitian Repair Warranty: 07/30/2021 Outpatient Dietitian Loss and Damage Warranty: 07/30/2021 [facility] Service Plan: 07/30/2021 Battery Size: 312 Senior Site Manager/Slim Tube: Size 2 slim tube Earmold/Dome/CShell/SlimTip:Slim tip SN: [id number] Kaitlin: 09/23/2018 Type of Wax Guard: Dispensed By: [facility] Date of Fittin05/19/2018 Left Ear: Make, Model, Color, Serial Number: Carlos NAPOLES B-312 SN: [id number] Color: Silver Gonzalez Outpatient Dietitian Repair Warranty: 07/30/2019 Outpatient Dietitian Loss and Damage Warranty: 07/30/2019 [facility] Service Plan: 07/30/2021 Battery Size: 312 Senior Site Manager/Slim Tube: 2 CROS wire Earmold/Dome/CShell/SlimTip: CROS tip - SN: [id number] Kaitlin: 11/17/2022 Type of Wax Guard: Dispensed By: [facility] Date of Fittin05/19/2018 Follow-Up Summary: Here for hearing aid problem, accompanied by . Left CROS slim tip wire is broken. Advised need new slim tip and wire. Quoted $65. Pt agrees. Ordering duplicate of slim tip acquired in 2022. Interested in new amplification. Advised new eval needed. Pt. reports he will be seeing ENT in April. Advised return for hearing aid consult with new audiogram and medical clearance. Recommendations: Recommendations (Other): Return for hearing aid consult with new audiogram. Diagnosis Code(s): Primary Diagnosis: H90.3 Bilateral Sensorineural Hearing Loss Signature: Provider: Sabra Del Real, [facility]
== END 2024-03-09 12:54 | disposition home or self-care (01) ==
LOC: HO.HAP 12:53
PROVIDERS: Visit Provider Internal Medicine
DX: Z13.89 Encounter for screening for other disorder (principal)

== ENCOUNTER 2024-03-19 12:58 | Outpatient (REF) | payer SELFPAY | END 2024-03-19 12:59 | disposition home or self-care (01) | LOC: HO.HAP 12:58 | PROVIDERS: Visit Provider Internal Medicine | DX: Z46.1 Encounter for fitting and adjustment of hearing aid (principal); H90.3 Sensorineural hearing loss, bilateral | CPT/HCPCS: 92593; 92700 ==

== ENCOUNTER 2024-04-30 12:14 | Outpatient (REF) | payer SELFPAY ==
--- NOTE | 2024-04-30 14:59 | MHC.AU.HA3 ---
Hearing Instrument Follow-Up- Binaural Date of Visit: 04/30/24 Right Ear: Make, Model, Color, Serial Number: Carlos Silva [id number] SN: [id number] Color: Silver Gonzalez Publishing Manager Repair Warranty: 07/30/2021 Publishing Manager Loss and Damage Warranty: 07/30/2021 [facility] Service Plan: 07/30/2021 Battery Size: 312 Service Coordinator/Slim Tube: Size 2 slim tube Earmold/Dome/CShell/SlimTip:Slim tip SN: [id number] Kaitlin: 09/23/2018 Dispensed By: [facility] Date of Fittin05/19/2018 Left Ear: Make, Model, Color, Serial Number: Calros NAPOLES B-312 SN: [id number] Color: Silver Gonzalez Publishing Manager Repair Warranty: 07/30/2019 Publishing Manager Loss and Damage Warranty: 07/30/2019 [facility] Service Plan: 07/30/2021 Battery Size: 312 Service Coordinator/Slim Tube: 2 CROS wire Earmold/Dome/CShell/SlimTip: CROS tip - SN: [id number] Kaitlin: 11/17/2022 Dispensed By: [facility] Date of Fittin05/19/2018 Follow-Up Summary: Right aid dropped off with broken slim tube. Cleaned aid, vacuumed chica ports. Gasket came out of mold when replacing slim tube. Previously glued in place in October. Glued gasket again. Listening check positive. Recommendations: Recommendations: Hearing instrument follow-up or maintenance as needed. Diagnosis Code(s): Primary Diagnosis: H90.3 Bilateral Sensorineural Hearing Loss Signature: Provider: Sabra Del Real, [facility]
== END 2024-04-30 12:15 | disposition home or self-care (01) ==
LOC: HO.HAP 12:14
PROVIDERS: Visit Provider Internal Medicine
DX: Z13.89 Encounter for screening for other disorder (principal)

== ENCOUNTER 2024-05-01 12:54 | Outpatient (REF) | payer SELFPAY | END 2024-05-01 12:55 | disposition home or self-care (01) | LOC: HO.HAP 12:54 | PROVIDERS: Visit Provider Internal Medicine | DX: Z46.1 Encounter for fitting and adjustment of hearing aid (principal); H90.3 Sensorineural hearing loss, bilateral | CPT/HCPCS: 92593 ==

== ENCOUNTER 2024-06-03 09:55 | Outpatient (REF) | payer SELFPAY | END 2024-06-03 09:56 | disposition home or self-care (01) | LOC: HO.HAP 09:55 | PROVIDERS: Visit Provider Internal Medicine | DX: Z13.89 Encounter for screening for other disorder (principal) ==

== ENCOUNTER 2024-06-04 10:04 | Outpatient (REF) | payer SELFPAY | END 2024-06-04 10:05 | disposition home or self-care (01) | LOC: HO.HAP 10:04 | PROVIDERS: Visit Provider Internal Medicine | DX: Z46.1 Encounter for fitting and adjustment of hearing aid (principal); H90.3 Sensorineural hearing loss, bilateral | CPT/HCPCS: 92592 ==

== ENCOUNTER 2024-11-18 15:00 | Outpatient (REF) | payer MEDICARE, SELFPAY ==
--- NOTE | ~2024-11-18 | XR_ITS ---
EXAMINATION: XR HIP, RIGHT CLINICAL INFORMATION: M25.551 - Pain in right hip COMPARISON: None available. TECHNIQUE: Two views of the right hip. AP views pelvi pelvis. FINDINGS: Bony pelvis is intact. Sclerosis along the articular surface of the right acetabulum. Asymmetric joint space narrowing, mild at the right coxofemoral joint. Marginal osteophyte formation and/syndesmophyte formation and endplate sclerosis at L4-5 and L5-S1. Bilateral facet joint hypertrophy at L5-S1. No acute cortical disruption or malalignment. No lytic or blastic lesions. XR/XR hip RT min 2V IMPRESSION: Mild osteoarthrosis, right hip. Electronically signed by: Nelson Billings MD 11/18/2024 03:38 PM EDT
== END 2024-11-18 15:01 | disposition home or self-care (01) ==
LOC: HO.HOSX 15:00
PROVIDERS: PCP Internal Medicine; Visit Provider Physician Assistant
DX: M25.551 Pain in right hip (principal); M53.3 Sacrococcygeal disorders, not elsewhere classified
CPT/HCPCS: 73502; 99202

== ENCOUNTER 2024-11-18 15:00 | Outpatient (AMB) | payer MEDICARE, SELFPAY ==
--- NOTE | 2024-11-18 15:06 | MHC.OFFVIS ---
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 Patient was seen by his PCP office and was referred to orthopedics. Patient reports his pain has been present for about 3 weeks and is located at his right side of his lower back area. States at first his pain as a shooting pain and is now described as throbbing pain. No numbness or tingling.. No previous treatment. Finds little relief Tylenol, he is unable to take NSAID's due to being on blood thinners. 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 He c/o pain with standing and with ride lateral movement . He c/o pain with back extension . He states there is no pain with laying in bed,but some discomfort with turning from left to right , denies n/t down the leg . [facility]LY [facility] Surgical History History of arthroscopy of both knees History of cholecystectomy History of appendectomy Family History Father No problems noted. Mother No problems noted. Social History Patient Tobacco Use Status: Former Tobacco user Current occupational status: retired Current occupation: rt handed Review of Systems Const All systems reviewed & are unremarkable except as noted in HPI and below Physical Exam Vital Signs: BMI result Body Mass Index 25.2 Const General: cooperative and no acute distress Orientation/consciousness: patient oriented x3 Resp Effort & Inspection: normal respiratory effort and able to speak in complete sentences Cardio Peripheral pulses: Peripheral pulses 2+ throughout Neuro General: patient oriented x3 Extrem Other: Right hip normal to inspection. No pain with ROM of the hip. No Pain along the greater trochanter. No pain with hip flexion or abduction.There is tenderness along the si joint, Positive SLR. NVI. Results Reviewed Results Reviewed: XR hip RT min 2V IMPRESSION: Mild osteoarthrosis, right hip. Assessment & Plan Assessment & Plan (1) Pain of right sacroiliac joint: Code(s): M53.3 - Sacrococcygeal disorders, not elsewhere classified Category: Medical Plan: We discussed options which include physical therapy to help with lumbar and core stabilization along with glute strengthening exercises. I explained cortisone injections could be beneficial to help alleviate the inflammatory response to his condition. He is interested in an injection. I referred him to pain management for further evaluation and possible injection. The patient is content with this plan. Orders: Orders XR hip RT min 2V Today M25.551 - Pain in right hip PT Evaluation and Treatment Today M53.3 - Sacrococcygeal disorders, not elsewhere classified Referrals Pain Management Referral M53.3 - Sacrococcygeal disorders, not elsewhere classified Coding Level of Care Code New Pt Level 3 (95467) Complex EM visit Add On G2211 Diagnoses Pain of right sacroiliac joint M53.3
[2024-11-18 15:19] VITALS: BMI 25.2
--- OUTSIDE RECORDS SUMMARY | 2024-11-18 15:45 | XMS_ITS | Data Portability ---
Author Organization [place] - [facility], Allergy Address [address] [place] [id number] Care Team Providers Care Credit Administrator Name Role Phone JACOB LEAVITT Referring Provider [phone] Assessment No assessment recorded. Plan of Treatment Reminders Order Date Submit Date Provider Last Modified By Organization Details Last Modified Time Details Appointments None record ed. Lab None record ed. Referral None record ed. Procedures None record ed. Surgeries None record ed. Imaging None record ed. Medication Orders None record ed. Patient TargetsNo targets recorded. Patient Instructions Encounter Date Encounter Id Patient Instructions Last Modified By Organization Details Last Modified Time 05/11/2024 [id number] Patient with longstanding history of hearing loss left ear since childhood presents with some fullness in the right ear and intermittent imbalance difficulties. No true vertigo or spinning. He had a negative noncontrast MRI of the brain in November. He has reasonably good hearing for age in the right ear with excellent discrimination scores. I think the likelihood of an acoustic neuroma is small. The gold standard would be a contrast MRI scan with fine cuts through the internal auditory canals. I do not think that is necessary at the present time. I have suggested he review with his PCP having a referral to physical therapy for balance therapy. [email or web address] Not available 05/11/2024 11:24:12 Reason for Referral None Reported. Results Created Date Observation Date Name Description Value Unit Range Abnormal Flag Note LastModifiedBy Organization Detail LastModifiedTime 05/11/2011/25/2023 MRI, brain + brain stem, w/wo contr ast No observ ation record ed. [email or web address] Not Available 04/24 11:33:59 05/12/20 audio gram No observ ation record ed. BARCODE Not Available 2023 10:31:40 Result Notes None recorded. Problems Name Problem SNOMED Code Status Onset Date Resolution Date Notes Provider Name and Address Organization Details Recorded Time Sensorineural hearing loss of bilateral ears 629790716 Active 2023 ALEX SHERMAN MD [address] [facility], [facility] [place], [address], [place] - [facility] 10:42:25 Impairment of balance 140677919 Active 2023 ALEX SHERMAN MD [address] [facility], [place], [address], [place] - [facility] 10:42:30 Abnormal auditory perception 30152188 Active 2023 ALEX SHERMAN MD [address] [facility], [place], [address], [place] - [facility] 10:42:55 Problem Notes None recorded. Procedures Surgical History Date Name Laterality Status Provider Name and Address Organization Details Recorded Time 05/11/20 24 Comp Audio with Tymps - 07975 & 52363 completed EDITH REBOLLEDO [address] [address], [place], [address], [facility] - [facility] 05/11/2024 11:02:56 Appendectomy completed Elaine Arce [facility] 05/11/2024 09:55:37 cholecystectomy completed Elaine Arce [place] - [facility] 05/11/2024 09:55:43 arthroscopy of knee completed Elaine Arce [place] - [facility] 05/11/2024 09:55:52 Cataract Surgery completed Elaine Arce [place] - [facility] 05/11/2024 09:56:07 transurethral prostatectomy completed Elaine Arce [facility] 05/11/2024 09:56:15 Imaging Results None recorded. Procedure Notes None recorded. Medical Equipment None Reported. Allergies Allergen ID Allergen Name Allergen Category Reaction Reaction Severity Criticality Documentation Date Start Date Code Code System Note Provider Name and Address Organization Details Recorded Time 538563 lorazepam medicatio n Not available Not available Not available 05/11/2024 6470 RxNorm Elaine vazquez [place] - [facility] 4 09:54:23 137548 Bactrim medicatio n Not available Not available Not available 05/11/2024 05314 9 RxNorm Elaine vazquez [place] - [facility] 4 10:21:08 Medications Name Sig Start Date Stop Date Status Note LastModified by Organization Details LastModified Time fluconazole 100 mg tablet TAKE 1 TABLET BY MOUTH EVERY DAY FOR 7 DAYS 05/11 completed Not Available Not Available Not Available prednisone 10 mg tablet TAKE 4 TABLETS WITH FOOD FOR 4 DAYS, 3 TABLETS FOR 3, 2 TABLETS FOR 2, 1 TABLET FOR 1 DAY 05/11 completed Not Available Not Available Not Available tamsulosin 0.4 mg capsule active Not Available Not Available Not Available oxybutynin chloride ER 5 mg tablet,exte nded release 24 hr 05/11 completed Not Available Not Available Not Available metoprolol succinate ER 25 mg tablet,exte nded release 24 hr active Not Available Not Available Not Available diazepam 10 mg tablet TAKE 1 TABLET 2 HRS BEFORE MRI AND MAY REPEAT AT TIME OF TEST NEEDED ORALLY DIRECTED 1 DAY 05/11 completed Not Available Not Available Not Available finasteride 5 mg tablet TAKE 1 TABLET BY MOUTH EVERY DAY active Not Available Not Available No t Available moxifloxaci n 0.5 % eye drops INSTILL 3 DROPS IN OPERATIVE EYE EVERY DAY START 1 DAY PRIOR TO PROCEDURE 05/11 completed Not Available Not Available Not Available Eliquis 5 mg tablet active Not Available Not Available No t Available Prolensa 0.07 % eye drops PUT 1 DROP IN OPERATIVE EYE EVERY DAY FOR 21 DAYS, START 1 DAY PRE OP 05/11 completed Not Available Not Available Not Available Vitals Date Recorded Body height Body weight Provider Name and Address Organization Details Last Updated DateTime 05/11/2024 171.45 cm 99566.85 g Elaine Arce [place] - [facility] 05/11/2024 09:56:34 Social History None recorded. Functional Status None recorded. Mental Status None recorded. Family History Nothing Reported. Medical History Condition Response Allergies/Hayfever Y GERD/Reflux Y Past Encounters Encounter ID Performer Location Encounter Start Date Encounter Closed Date Diagnosis/Indication Diagnosis SNOMED-CT Code Diagnosis ICD10 Code Diagnosis Note [id number] ALEX BORRERO MD [facility] [address] [phone] 05/11/2024 09:49:39 05/11/2024 11:28:48 Sensorineural hearing loss of bilateral ears [id number] H90.3 Audiologic al evaluation results: Right ear: Mild sloping to profound sensorineu ral hearing loss with excellent word recognitio n. Left ear: Severe sloping to profound sensorineu ral hearing loss with no measurable word recognitio n. Tympanomet ry: Right Ear:Type A Left Ear:Type A Impairment of balance 38 6647251 R26.89 Abnormal a uditory perception 03635805 H93.291 Has had fullness sensation in his right ear. Large amount of cerumen removed. Suggest 3 drops distilled vinegar twice weekly and avoidance of Q-tips or peroxide preparatio ns. If he has persistent symptoms of fullness and blockage in the ear, we can consider an MRI scan to rule out acoustic neuroma. Health Concerns Section Related Observation LastModified by Organization Detai ls LastModified Time None Recorded Concern Status LastModified by Organization Details LastModified Time None Recorded Advance Directives Directive None Recorded Payers Insurance Date Sequence Insurance Name Policy Number Policy Zavala Covered Member ID Zavala Member ID Guarantor Name 05/11/2024 1 MEDICARE [place]: [employer] Adan Boone Jr [id number] Adan Boone Jr 05/11/2024 1 [facility] - MEDICARE ADVANTAGE PLAN (MEDICARE REPLACEMENT HMO) [id number] Adan Boone Jr [id number] Adan Boone Jr Notes Date Note Type Note Provider Name and Address Organization Details Recorded Time 05/11/2024 text/html Patient with longstanding history of hearing loss left ear since childhood presents with sensation of fullness in his right ear and sinuses with imbalance sensation for the last several months. He notes that his hearing has been progressively worse on the right side and he currently wears a hearing aid. Reports having a noncontrast MRI scan several months ago. Last audiogram approximately 1 year ago. Notes the imbalance sensation really occurs after a few steps where he feels that he is just unsteady last for a few seconds to up to a minute. No true spinning sensation no nausea or vomiting. No chest pain or shortness of breath. History of paroxysmal atrial fibrillation ALEX ZAMUDIO MD [address] [place] [address], [phone], [facility] - [facility] 05/11/2024 11:26:55
== END 2024-11-18 15:53 | disposition home or self-care (01) ==
PROVIDERS: PCP Internal Medicine; Visit Provider Physician Assistant
DX: M53.3 Sacrococcygeal disorders, not elsewhere classified (principal)
CPT/HCPCS: 99203; G2211

== ENCOUNTER → 2024-11-18 15:10 | Outpatient (BNV) | payer MEDICARE, SELFPAY | PROVIDERS: PCP Internal Medicine; Visit Provider Radiology Diagnostic Radiology | DX: M16.11 Unilateral primary osteoarthritis, right hip (principal) | CPT/HCPCS: 73502 ==

== ENCOUNTER → 2024-11-25 09:10 | Outpatient (BNVA) | payer MEDICARE, SELFPAY | PROVIDERS: PCP Internal Medicine; Visit Provider Internal Medicine ==

== ENCOUNTER 2024-11-26 10:49 | Outpatient (REF) | payer MEDICARE, SELFPAY ==
--- NOTE | ~2024-11-26 | XR_ITS ---
CLINICAL HISTORY: M53.3 - Sacrococcygeal disorders, not elsewhere classified Three views of the sacroiliac joints. COMPARISON: None FINDINGS: Sacrum appears intact. Degenerative changes of the partially visualized lower lumbar spine. Sacroiliac joints appear maintained. No evidence of fusion or erosion. No adjacent increased sclerosis. Pelvic phleboliths. Remaining visualized bones of the pelvis appear intact. No radiopaque foreign body. IMPRESSION: 1. No radiographic evidence of injury to the sacroiliac joints. No evidence of fusion or erosions. 2. Degenerative changes of the partially visualized lower lumbar spine. This document has been electronically signed by: Jaren Byrne MD on 11/26/2024 15:09:43
--- NOTE | ~2024-11-26 | XR_ITS ---
CLINICAL HISTORY: M53.3 - Sacrococcygeal disorders, not elsewhere classified Five views of the lumbar spine. COMPARISON: None FINDINGS: Five uqb-[id number] lumbar type vertebral bodies. Dextrocurvature of the mid lumbar spine. Grade 1 anterolisthesis of L4 on L5. No pars defects identified on oblique imaging. Vertebral body heights are maintained. No evidence of acute vertebral body injury. Multilevel loss of disc space height and marginal osteophytes. Facet joint arthrosis present throughout the lumbar spine with neural foraminal narrowing most pronounced at L5-S1. Visualized bones of the pelvis appear intact. Pelvic phleboliths present. Cholecystectomy. IMPRESSION: 1. No radiographic evidence of acute injury to the lumbar spine. 2. Grade 1 anterolisthesis of L4 on L5. No pars defects identified. 3. Dextrocurvature of the midthoracic spine. 4. Advanced multilevel degenerative changes of the lumbar spine. This document has been electronically signed by: Jaren Byrne MD on 11/26/2024 15:10:55
== END 2024-11-26 10:50 | disposition home or self-care (01) ==
LOC: HO.XRAY 10:49
PROVIDERS: PCP Internal Medicine; Visit Provider Nurse Practitioner Family
DX: M53.3 Sacrococcygeal disorders, not elsewhere classified (principal); M54.50 Low back pain, unspecified
CPT/HCPCS: 72110; 72202; 99202

== ENCOUNTER 2024-11-26 10:49 | Outpatient (AMB) | payer MEDICARE, SELFPAY ==
--- NOTE | 2024-11-26 10:59 | MHC.OFFVIS ---
Vital Signs 11/26/24 11:05 Height 5 ft 9 in Weight 180 lb BMI 26.6 BP 116/62 Blood Pressure Location Lt brachial Position Sitting Pulse 60 Pulse Source Pulse Oximeter Pulse Oximetry (%) 97 Oxygen Delivery Method Room Air Intake Visit Reasons: Sacrococcygeal disorders Intake Note: Pain today 10/01 Packaging Associate Required: No Accompanied by: Spouse Allergies lorazepam [From ATIVAN] Allergy (Unknown, Verified 11/26/24 11:06) CONFUSION sulfamethoxazole [From Bactrim] Allergy (Unknown, Verified 11/26/24 11:06) Unknown trimethoprim [From Bactrim] Allergy (Unknown, Verified 11/26/24 11:06) Unknown HPI Comments Details: The patient is an 79-year-old male presenting with right-sided low back pain and sacroiliac joint pain. He has been seeing [facility] for right hip pain related to mild osteoarthritis and has been referred to us for further evaluation for SI joint pain. The pain has persisted since October 28, following a golfing incident. It is characterized as dull, sore, and achy, located directly above the belt line on the right side. The pain is intermittent and does not radiate, with no associated numbness, tingling, weakness or burning sensations. He reports increased discomfort when performing twisting or side bending to right side and minimal discomfort with backward movement, which may correlate with existing back arthritis. There has been no history of previous surgical or interventional treatments for the back or hip. 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 A diagnosis of atrial fibrillation, being managed with Eliquis, is noted. He denies any history of malignancy and reports no groin pain linked to hip arthritis. Despite trying topical treatments, Tylenol and heat applications, these have not provided relief for the back pain localized at the sacroiliac joint, mid to lower back or hip areas. Manual examinations suggest this may not be primarily due to sacroiliac joint pathology but could involve lumbar muscular strain or a disc issue. An X-ray of the hip showed mild OA, but further imaging of the back has not been conducted. Suggestions for physical therapy have been met with patient hesitance regarding potential benefits. - Onset: October 28, following a golfing incident. - Quality and Character: Dull, sore, and achy. Pain is rated 3-4/10. - Primary Location: Right-sided low back, paraspinals mid to lower lumbar - Radiation: None. - Exacerbating Factors: Backward movements, twisting and [id number] motions. - Relieving Factors: None identified. Tried heating pad, topical patches, rest, Tylenol, back bracing, activity modifications. - Interference with Activities: Not specifically mentioned but suggests discomfort with certain motions. - Affect: No specific impact on mood discussed. - Analgesia: Reported intermittent back pain, minimal relief with Tylenol - Adverse Effects: None from Tylenol. Avoids NSAIDs due to Eliquis. - Activities of Daily Living: Pain affects certain movements and activities implicit in [employer]ter[employer] ([employer])g. - Aberrant Drug Related Behaviors: None reported or discussed. FORMERLY [facility], [facility] Surgical History History of arthroscopy of both knees History of cholecystectomy History of appendectomy Family History Father No problems noted. Mother No problems noted. Social History Patient Tobacco Use Status: Former Tobacco user Current occupational status: retired Current occupation: rt handed Review of Systems Const Details: - Musculoskeletal: Reports right-sided low back pain, located above the belt line. Denies numbness, tingling, burning, groin pain, weakness or saddle anesthesia. - Cardiovascular: History of atrial fibrillation, on Eliquis. - General: Denies history of surgery on the back and reports use of cortisone injections for knee and shoulder arthritis. All systems reviewed & are unremarkable except as noted in HPI and below Physical Exam Vital Signs: Last Vital Signs Pulse 60 11/26/24 11:05 BP 116/62 11/26/24 11:05 Pulse Ox 97 11/26/24 11:05 Oxygen Delivery Method Room Air 11/26/24 11:05 BMI result Body Mass Index 26.6 General: Appears afebrile. Alert and oriented. Mood and affect appropriate. Follows and participates in conversation appropriately. Respiratory effort is unlabored. No cough. Able to transition from sit to stand unassisted. Ambulates with bilaterally normal heel strike and toe off. General: Yes no CVA tenderness Back/Spine/Pelvis Other: Patient is able to walk and stand on heels and tip toes with no difficulties demonstrating good motor tone. Normal gait, no limping. Can flex forward to 80-85 degrees and extend to 5-10 degrees before experiencing mild lumbar pain predominantly with extension and lateral rotations. Demonstrates 5/5 strength of quadriceps bilaterally as well as flexion/dorsiflexion of bilateral feet against resistance. 2+ pedal pulses bilaterally. Seated and supine straight leg rise with dorsiflexion negative bilaterally. +2 patellar and achilles reflexes bilaterally. Facet loading test positive bilaterally. Manasa sign positive on the right, Anthony?s, [place], Pelvic compression and Stinchfield tests are negative bilaterally. No groin pain with I/E hip rotations. Significant paraspinals tenderness mostly on the right mid and lower back. Valsalva maneuver is negative. Back: no CVA tenderness Cervical Spine: cervical ROM normal and No Cervical spine tenderness Thoracic/Lumbar Spine: thoracic and lumbar spine normal to inspection, No Thoracic/lumbar spine scar(s), Lasegue's sign negative, straight leg raise negative bilaterally, paraspinal muscle tenderness on the right in the mid lumbar and in the lower lumbar, thoraco-lumbar spasm on the right in the lower lumbar, No thoracic spinal tenderness and No lumbar spinal tenderness Pelvis: no buttock tenderness and no unilateral elevation of iliac crest Sacroiliac joints: on the right tender to palpation (mild) and on the left nontender Results Reviewed Results Reviewed: XR HIP, RIGHT 11/18/24 CLINICAL INFORMATION: M25.551 - Pain in right hip FINDINGS: Bony pelvis is intact. Sclerosis along the articular surface of the right acetabulum. Asymmetric joint space narrowing, mild at the right coxofemoral joint. Marginal osteophyte formation and/syndesmophyte formation and endplate sclerosis at L4-5 and L5-S1. Bilateral facet joint hypertrophy at L5-S1. No acute cortical disruption or malalignment. No lytic or blastic lesions. IMPRESSION: Mild osteoarthrosis, right hip. XR lumbar spine 4V min 11/26/24 COMPARISON: None FINDINGS: Five [id number]-[id number] lumbar type vertebral bodies. Dextrocurvature of the mid lumbar spine. Grade 1 anterolisthesis of L4 on L5. No pars defects identified on oblique imaging. Vertebral body heights are maintained. No evidence of acute vertebral body injury. Multilevel loss of disc space height and marginal osteophytes. Facet joint arthrosis present throughout the lumbar spine with neural foraminal narrowing most pronounced at L5-S1. Visualized bones of the pelvis appear intact. Pelvic phleboliths present. Cholecystectomy. IMPRESSION: 1. No radiographic evidence of acute injury to the lumbar spine. 2. Grade 1 anterolisthesis of L4 on L5. No pars defects identified. 3. Dextrocurvature of the midthoracic spine. 4. Advanced multilevel degenerative changes of the lumbar spine. XR sacroiliac joint min 3V 11/26/24 FINDINGS: Sacrum appears intact. Degenerative changes of the partially visualized lower lumbar spine. Sacroiliac joints appear maintained. No evidence of fusion or erosion. No adjacent increased sclerosis. Pelvic phleboliths. Remaining visualized bones of the pelvis appear intact. No radiopaque foreign body. IMPRESSION: 1. No radiographic evidence of injury to the sacroiliac joints. No evidence of fusion or erosions. 2. Degenerative changes of the partially visualized lower lumbar spine. Assessment & Plan Assessment & Plan (1) Pain of right sacroiliac joint: Code(s): M53.3 - Sacrococcygeal disorders, not elsewhere classified Category: Medical (2) Low back pain: Code(s): M54.50 - Low back pain, unspecified Category: Medical (3) Muscle spasm of back: Code(s): M62.830 - Muscle spasm of back Category: Medical (4) Lumbar degenerative disc disease: Code(s): M51.369 - Other intervertebral disc degeneration, lumbar region without mention of lumbar back pain or lower extremity pain Category: Medical (5) Acute lumbar myofascial strain: Code(s): S39.012A - Strain of muscle, fascia and tendon of lower back, initial encounter Category: Medical (6) Lumbosacral spondylosis: Code(s): M47.817 - Spondylosis without myelopathy or radiculopathy, lumbosacral region Category: Medical Plan Patient presents today with acute right sided mid to lower back pain, most consistent with axial, discogenic and SI joint pain components as well as lumbar strain following recent golfing. Lumbar spine and SI imaging was obtained after today's visit, as noted above. We have discussed interventional treatments for current pain generators, including diagnostic vs therapeutic injections, peripheral nerve stimulation with Sprint PNS trial and RFA procedures. Consideration was made for trying short term Medrol dose pack to evaluate effectiveness in reducing inflammation, correlating with discogenic pain if improvement is noted. However, patient was recently started on Flecainide for A fib on 11/25/24 and currently on Eliquis, will hold off on steroids until patient is back into sinus per collaboration with his Director Product Development, Dr. Mullins. Methocarbamol is provided to assist with any muscular tension. Side effects and precautions were discussed with patient and his . Continue Tylenol, lidocaine patches and alternate heat with ice therapy. Gentle stretching and walking encouraged, avoid prolonged bed rest. Consider physical therapy for core strengthening, muscle strengthening, postural training and improved flexibility. Patient is aware to call if pain worsens or if he develops any red flag symptoms to seek emergency care. He denies any neurologic deficits, including weakness, numbness, bowel/bladder dysfunction or saddle anesthesia. Follow-ups scheduled to address ongoing concerns and adapt treatment as necessary. Patient was informed and verbally consented to the use of an ambient scribe for clinic note documentation during this visit. Orders: Orders XR sacroiliac joint min 3V Today M53.3 - Sacrococcygeal disorders, not elsewhere classified, M54.50 - Low back pain, unspecified XR lumbar spine 4V min Today M53.3 - Sacrococcygeal disorders, not elsewhere classified, M54.50 - Low back pain, unspecified Medications: New methocarbamol 500 mg PO BID PRN 60 tabs 0RF muscle spasm M62.830 - Muscle spasm of back Coding Level of Care Code New Pt Level 4 (81858) Diagnoses Pain of right sacroiliac joint M53.3 Low back pain M54.50 Muscle spasm of back M62.830 Lumbar degenerative disc disease M51.369 Acute lumbar myofascial strain S39.012A Lumbosacral spondylosis M47.817
[2024-11-26 11:05] VITALS: BP 116/62; PULSE 60; O2SAT 97; BMI 26.6
--- OUTSIDE RECORDS SUMMARY | 2024-11-26 12:44 | XMS_ITS | Data Portability ---
Author Organization [place] - [facility], Allergy Address [address] [place] [id number] Care Team Providers Care Pressurization Mechanic Name Role Phone JACOB LEAVITT Referring Provider Assessment No assessment recorded. Plan of Treatment [...] By Organization Details Last Modified Time 05/11/2024 46006 Patient with longstanding history of hearing loss [...] contr ast No observ ation record ed. [email or web address] Not Available 04/24 11:33:59 05/12/20 audio gram No observ ation record ed. BARCODE Not Available 2023 10:31:40 Result Notes None recorded. Problems Name Problem SNOMED Code Status Onset Date Resolution Date Notes Provider Name and Address Organization Details Recorded Time Sensorineural hearing loss of bilateral ears 972374848 Active 2023 ALEX SHERMAN MD [address] [facility], [place], [address], [place] - [facility] 10:42:25 Impairment of balance 890827239 Active 2023 ALEX SHERMAN MD [address] [facility], [place], [address], [place] - [facility] 10:42:30 Abnormal auditory perception 24062538 Active 2023 ALEX SHERMAN MD [address] [facility], [place], [address], [place] - [facility] 10:42:55 Problem Notes None recorded. Procedures Surgical History Date Name Laterality Status Provider Name and Address Organization Details Recorded Time 05/11/20 24 Comp Audio with Tymps - 68731 & 53105 completed EDITH REBOLLEDO [address] [address], [place], [address], [facility] - [facility] 05/11/2024 11:02:56 Appendectomy completed Elaine Arce [facility] 05/11/2024 09:55:37 cholecystectomy completed Elaine Arce [place] - [facility] 05/11/2024 09:55:43 arthroscopy of knee completed Elaine Arce [place] - [facility] 05/11/2024 09:55:52 Cataract Surgery completed Elaine Arce [place] - [facility] 05/11/2024 09:56:07 transurethral prostatectomy completed Elaine Arce [facility] 05/11/2024 09:56:15 Imaging Results None recorded. Procedure Notes None recorded. Medical Equipment None Reported. Allergies Allergen ID Allergen Name Allergen Category Reaction Reaction Severity Criticality Documentation Date Start Date Code Code System Note Provider Name and Address Organization Details Recorded Time 364599 lorazepam medicatio n Not available Not available Not available 05/11/2024 6470 RxNorm Elaine vazquez [place] - [facility] 4 09:54:23 032013 Bactrim medicatio n Not available Not available Not available 05/11/2024 72333 9 RxNorm Elaine vazquez [place] - [facility] 4 10:21:08 Medications Name Sig Start Date [...] Details Last Updated DateTime 05/11/2024 171.45 cm 83136.85 g Elaine Arce [place] - [facility] 05/11/2024 09:56:34 Social History None recorded. Functional Status None recorded. Mental Status None recorded. Family History Nothing Reported. Medical History Condition Response Allergies/Hayfever Y GERD/Reflux Y Past Encounters Encounter ID Performer Location Encounter Start Date Encounter Closed Date Diagnosis/Indication Diagnosis SNOMED-CT Code Diagnosis ICD10 Code Diagnosis Note [id number] ALEX BORRERO MD [facility] [address] [address] 05/11/2024 09:49:39 05/11/2024 11:28:48 Sensorineural hearing loss of bilateral ears 263324902 H90.3 Audiologic al evaluation results: Right ear: Mild sloping to profound sensorineu ral hearing loss with excellent word recognitio n. Left ear: Severe sloping to profound sensorineu ral hearing loss with no measurable word recognitio n. Tympanomet ry: Right Ear:Type A Left Ear:Type A Impairment of balance 38 9719063 R26.89 Abnormal a uditory perception 79729497 H93.291 Has had fullness sensation in his [...] Member ID Guarantor Name 05/11/2024 1 MEDICARE B-KS: [employer] Adan Boone Jr [id number] Adan Boone Jr 05/11/2024 1 [facility] - MEDICARE ADVANTAGE PLAN (MEDICARE REPLACEMENT HMO) [id number] Adan Boone Jr [id number] Adan Boone Jr Notes Date Note Type [...] of paroxysmal atrial fibrillation ALEX ZAMUDIO MD [address] [place] [address], [address], [facility] - [facility] 05/11/2024 11:26:55
== END 2024-11-26 11:56 | disposition home or self-care (01) ==
LOC: HO.PMC 10:50
PROVIDERS: PCP Internal Medicine; Visit Provider Nurse Practitioner Family
DX: M53.3 Sacrococcygeal disorders, not elsewhere classified (principal); M54.50 Low back pain, unspecified; M62.830 Muscle spasm of back; M51.369 Other intervertebral disc degeneration, lumbar region without mention of lumbar back pain or lower extremity pain; S39.012A Strain of muscle, fascia and tendon of lower back, initial encounter; M47.817 Spondylosis without myelopathy or radiculopathy, lumbosacral region
CPT/HCPCS: 99204

== ENCOUNTER → 2024-11-26 11:48 | Outpatient (BNV) | payer MEDICARE, SELFPAY | PROVIDERS: PCP Internal Medicine; Visit Provider Radiology Diagnostic Radiology | DX: M51.369 Other intervertebral disc degeneration, lumbar region without mention of lumbar back pain or lower extremity pain (principal); M41.34 Thoracogenic scoliosis, thoracic region | CPT/HCPCS: 72110; 72202 ==

== ENCOUNTER 2024-12-01 09:03 | Outpatient (AMB) | payer MEDICARE, SELFPAY ==
--- NOTE | 2024-12-01 09:27 | MHC.OFFVIS ---
Vital Signs 12/01/24 09:28 Height 5 ft 9 in Weight 169 lb 12.095 oz BMI 25.1 BP 100/60 Blood Pressure Location Lt brachial Position Sitting Pulse 57 Pulse Source Monitor Intake Visit Reasons: dr request Allergies lorazepam [From ATIVAN] Allergy (Unknown, Verified 11/26/24 11:06) CONFUSION sulfamethoxazole [From Bactrim] Allergy (Unknown, Verified 11/26/24 11:06) Unknown trimethoprim [From Bactrim] Allergy (Unknown, Verified 11/26/24 11:06) Unknown Medication List - Last Reconciled 12/01/24 by Janes Mullins MD apixaban (Eliquis) 5 mg PO BID finasteride 5 mg PO DAILY flecainide 100 mg PO Q12H methocarbamol 500 mg PO BID PRN metoprolol succinate ER (Toprol XL) 25 mg PO DIRECTED 90 days tamsulosin mg PO HPI Comments Details: Adan returns for follow-up regarding paroxysmal atrial fibrillation. Last week, he came in with some complaints like chest tightness and he was in atrial fibrillation with slightly rapid rate. After that, we started on flecainide. We initially tried 50 mg b.i.d. but as he was still having the symptoms we increased to 100 mg b.i.d.. Then he converted to sinus rhythm. He states he is feeling better but he is getting some stomach upset with flecainide. He states that he does not really have any clear-cut palpitations when he gets atrial fibrillation but rather feels some tightness in the chest. However, he does not have any documented obstructive coronary artery disease. On rare occasions, it seems he does get chest tightness when he goes up flights of stairs and hence not clear if those episodes or angina or something else like deconditioning. [facility] Surgical History History of arthroscopy of both knees History of cholecystectomy History of appendectomy Family History Father No problems noted. Mother No problems noted. Social History Patient Tobacco Use Status: Former Tobacco user Current occupational status: retired Current occupation: rt handed Review of Systems Const Denies weakness ENT Denies dizziness Card Denies chest pain, Denies chest pain with activity, Denies syncope, Denies rapid heart rate, Denies pedal edema, Denies edema, Denies leg edema, Denies lightheadedness, Denies palpitations, Denies dyspnea, Denies dyspnea on exertion and Denies orthopnea Resp Denies cough, Denies dyspnea and Denies dyspnea on exertion GI Denies hematochezia, Denies change in stool character and Reports other (UPSET STOMACH) Musc Denies abnormal gait, Denies muscle cramps, Denies muscle weakness, Denies numbness, Denies radiating pain into limb and Denies tingling Neuro Denies abnormal gait, Denies dizziness, Denies syncope, Denies numbness, Denies tingling and Denies weakness Endo Denies palpitations Physical Exam Vital Signs: Last Vital Signs Pulse 57 12/01/24 09:28 BP 100/60 12/01/24 09:28 BMI result Body Mass Index 25.1 Const General: comfortable and no acute distress Orientation/consciousness: patient oriented x3 HEENT Other: Unremarkable Head: Yes normal to inspection Neck Neck: Yes normal visual inspection Chest Chest palpation & inspection: normal inspection of the chest Resp Auscultation: clear to auscultation bilaterally Cardio Palpation: normal PMI Heart sounds: S1 normal heart sound present, S2 normal heart sound present, no gallops, no murmurs and no rubs GI Palpation (GI): Soft to palpation Back/Spine/Pelvis Other: unremarkable Skin General skin exam: no rashes or lesions noted Neuro General: patient oriented x3 Extrem General: Yes normal to inspection Psych Mental Status: mental status grossly normal Office Procedures EKG Details: EKG with underlying sinus bradycardia at 57/Min; sinus arrhythmias; cannot exclude old inferior infarct vs normal variant; [place] [address]-Tpcjkhpwladjardtf, Complete Assessment & Plan Assessment & Plan (1) PAF (paroxysmal atrial fibrillation): Code(s): I48.0 - Paroxysmal atrial fibrillation Category: Medical (2) Encounter for monitoring anti-arrhythmic therapy: Code(s): Z51.81 - Encounter for therapeutic drug level monitoring; Z79.899 - Other watcher automat long goods (current) drug therapy Category: Medical Plan Stable on flecainide/low-dose beta-blockers, apart from mild gastric upset from flecainide. He needs a comprehensive evaluation with an echocardiogram, stress test and Holter monitor. With regard to the chest tightness he has described, need to be clear if there is any obstructive CAD or not as he is on flecainide. Otherwise, we also discussed about possibility of atrial fibrillation ablation but he states he would like to hold off on that and just stay on flecainide. We will see him back in follow-up once the testing is completed. In the interim, call with concerns. Discussion Notes During today's visit, I assessed the patient's cardiac arrhythmia and associated symptoms of chest tightness. We reviewed the history of Flecainide use, noting its efficacy and mild gastrointestinal side effects. We discussed the possibility of an ablation procedure, exploring its advancements and higher success rates. However, the patient chose to continue with Flecainide for now. I have scheduled further diagnostic tests, including an echocardiogram, stress test, and Holter monitoring, to evaluate his cardiac function comprehensively. He understands that ablation remains an option should symptoms escalate. We agreed on a follow-up visit within four to five weeks after conducting the recommended tests, and I will review results and refine management strategies accordingly. Patient was informed and verbally consented to the use of an ambient scribe for clinic note documentation during this visit. Orders: Orders CA echo transthoracic complete Today I48.0 - Paroxysmal atrial fibrillation ECG 7 day holter monitor Today I48.0 - Paroxysmal atrial fibrillation NM cardiolite stress test Today I48.0 - Paroxysmal atrial fibrillation, R07.2 - Precordial pain CA stress test Today I48.0 - Paroxysmal atrial fibrillation, R07.2 - Precordial pain Medications: Changed From flecainide 50 mg PO Q12H 30 days 60 tabs 5RF To flecainide 100 mg PO Q12H Patient Instructions: - Continue taking Flecainide as prescribed. - Monitor for any increased stomach discomfort or distress. - Undergo the scheduled echocardiogram, stress test, and Holter monitor tests. - Watch for increased tightness in the chest and seek care if symptoms worsen. - Expect a follow-up visit in about four to five weeks to discuss test results. - Call our office if you experience new or worsening symptoms before the scheduled review. Coding Level of Care Code Est Pt Level 4 (26197) Complex EM visit Add On G2211 Diagnoses PAF (paroxysmal atrial fibrillation) I48.0 Encounter for monitoring anti-arrhythmic therapy Z51.81; Z79.899 CPT Codes EKG - CPT: 31703-Vhlangzxufyhqnfop, Complete ([id number])
[2024-12-01 09:28] VITALS: BP 100/60; PULSE 57; BMI 25.1
--- OUTSIDE RECORDS SUMMARY | 2024-12-01 09:45 | XMS_ITS | Data Portability ---
Author Organization [place] - [facility], Allergy Address [address] [place] [address] Care Team Providers Care Dye Maker Name Role Phone JACOB LEAVITT Referring Provider [...] By Organization Details Last Modified Time 05/11/2024 31637 Patient with longstanding history of hearing loss [...] contr ast No observ ation record ed. [email or web address] Not Available 04/24 11:33:59 05/12/20 audio gram No observ ation record ed. [email or web address] Not Available 2023 10:31:40 Result Notes None recorded. Problems Name Problem SNOMED Code Status Onset Date Resolution Date Notes Provider Name and Address Organization Details Recorded Time Sensorineural hearing loss of bilateral ears 120593728 Active 2023 ALEX SHERMAN MD [address] [facility], [place], [address], [place] - [facility] 10:42:25 Impairment of balance 927667695 Active 2023 ALEX SHERMAN MD [address] [facility], [place], [address], [place] - [facility] 10:42:30 Abnormal auditory perception 34481023 Active 2023 ALEX SHERMAN MD [address] [facility], [place], [address], [place] - [facility] 10:42:55 Problem Notes None recorded. Procedures Surgical History Date Name Laterality Status Provider Name and Address Organization Details Recorded Time 05/11/20 24 Comp Audio with Tymps - 49706 & 87888 completed EDITH REBOLLEDO [address] [address], [place], [address], [facility] - [facility] 05/11/2024 11:02:56 Appendectomy completed Elaine Arce [facility] 05/11/2024 09:55:37 cholecystectomy completed Elaine Arce [place] - [facility] 05/11/2024 09:55:43 arthroscopy of knee completed Elaine Arce [place] - [facility] 05/11/2024 09:55:52 Cataract Surgery completed Elaine Arce [place] - [facility] 05/11/2024 09:56:07 transurethral prostatectomy completed Elaine Arce [facility] 05/11/2024 09:56:15 Imaging Results None recorded. Procedure Notes None recorded. Medical Equipment None Reported. Allergies Allergen ID Allergen Name Allergen Category Reaction Reaction Severity Criticality Documentation Date Start Date Code Code System Note Provider Name and Address Organization Details Recorded Time 255479 lorazepam medicatio n Not available Not available Not available 05/11/2024 6470 RxNorm Elaine vazquez [place] - [facility] 4 09:54:23 018210 Bactrim medicatio n Not available Not available Not available 05/11/2024 26309 9 RxNorm Elaine vazquez [place] - [facility] 4 10:21:08 Medications Name Sig [...] Details Last Updated DateTime 05/11/2024 171.45 cm 19461.85 g Elaine Arce [place] - [facility] 05/11/2024 09:56:34 Social History None recorded. Functional Status None recorded. Mental Status None recorded. Family History Nothing Reported. Medical History Condition Response Allergies/Hayfever Y GERD/Reflux Y Past Encounters Encounter ID Performer Location Encounter Start Date Encounter Closed Date Diagnosis/Indication Diagnosis SNOMED-CT Code Diagnosis ICD10 Code Diagnosis Note [id number] ALEX BORRERO MD [facility] [address] [address] 05/11/2024 09:49:39 05/11/2024 11:28:48 Sensorineural hearing loss of bilateral ears 903850754 H90.3 Audiologic al evaluation results: Right ear: Mild sloping to profound sensorineu ral hearing loss with excellent word recognitio n. Left ear: Severe sloping to profound sensorineu ral hearing loss with no measurable word recognitio n. Tympanomet ry: Right Ear:Type A Left Ear:Type A Impairment of balance 38 3398238 R26.89 Abnormal a uditory perception 54880734 H93.291 Has had fullness sensation in his [...] Member ID Guarantor Name 05/11/2024 1 [place]IC[place]: [employer] SERVICES Adan Boone Jr [id number] Adan Boone Jr 05/11/2024 1 [facility] - MEDICARE ADVANTAGE PLAN (MEDICARE REPLACEMENT HMO) [id number] Adan Boone Jr [id number] Adan Boone Jr Notes Date Note Type [...] of paroxysmal atrial fibrillation ALEX ZAMUDIO MD [address] [place] [address], [phone], [facility] - [facility] 05/11/2024 11:26:55
== END 2024-12-01 09:53 | disposition home or self-care (01) ==
PROVIDERS: PCP Internal Medicine; Visit Provider Internal Medicine
DX: I48.0 Paroxysmal atrial fibrillation (principal); Z51.81 Encounter for therapeutic drug level monitoring; Z79.899 Other long term (current) drug therapy
CPT/HCPCS: 93010; 99214; G2211

== ENCOUNTER → 2024-12-01 09:03 | Outpatient (BNVA) | payer MEDICARE, SELFPAY | PROVIDERS: PCP Internal Medicine; Visit Provider Internal Medicine | DX: I48.0 Paroxysmal atrial fibrillation (principal); Z51.81 Encounter for therapeutic drug level monitoring; Z79.899 Other long term (current) drug therapy | CPT/HCPCS: 93005; 99212 ==

== ENCOUNTER → 2024-12-03 12:49 | Outpatient (REF) | payer MEDICARE, SELFPAY ==
--- NOTE | 2024-12-03 12:53 | CA_ITS ---
Transthoracic Echocardiogram Patient (Last, First, Middle): Adan Boone L Gender: Male Date of : 1945 Age: 79 Procedure Date: 12/03/2024 Procedure Type: Transthoracic Echocardiogram Location: OP Height: 175.26 cm Weight: 81.65 kg BSA: 1.98 m2 Heart Rate: 52 bpm BP: 100 / 60 mmHg Pipe Changer: SB Referring MD: Janes Mullins MD Tar And Ammonia Pump Operator: Matt Guzman MD Symptoms: I48.0 - Paroxysmal atrial fibrillation Study Quality: Adequate ECG Rhythm: Bradycardia Conclusions: - 1. Normal LV ejection fraction of 60 65% with impaired relaxation filling pattern 2. Mildly dilated right-sided chambers with preserved RV contractility 3. Normal cardiac valvular Dopplers 4. Normal RV systolic pressure 5. No gross pericardial effusion Findings Left Ventricle Normal left ventricular size, thickness, and systolic function. The visually estimated ejection fraction is between 60-65%. Spectral Doppler is indicative of an impaired relaxation filling pattern. E/E prime ratio is between 8 and 15 consistent with indeterminate filling pressures. Right Ventricle Mildly increased right ventricular cavity size. There is normal right ventricular systolic function. Atria The left atrium is normal in size. There is no evidence of interatrial shunt. The right atrium is mildly dilated. Aortic Valve Normal aortic valve structure and function. There is no aortic valve stenosis. There is no aortic valve regurgitation. Mitral Valve Normal mitral valve structure and function. There is trace mitral valve regurgitation. There is no mitral valve stenosis. Pulmonic Valve The pulmonic valve was not well visualized. Tricuspid Valve Likely normal tricuspid valve structure and function. There is trace tricuspid valve regurgitation. The right ventricular systolic pressure is normal. The right ventricular systolic pressure is 19 mmHg. Normal right atrial pressure. There is no evidence of pulmonary hypertension. Great Vessels All visible segments of the aorta are normal in size. The pulmonary artery was not well visualized. There is no dilatation of the ascending aorta measuring 3.20 cm. Venous The inferior vena cava is normal in size and collapses greater than 50% with inspiration. Pericardium/Pleural There is no evidence of pericardial effusion. Prior Study Comparison Changes noted compared to prior study dated: 12/27/2020. right-sided chambers appear to be enlarged Measurements 2D Linear Measurements IVSd: 0.88 0.6-0.9/0.6-1.0 cm LVIDd: 4.93 3.9-5.3/4.2-5.9 cm LVIDd Index: 2.49 2.4-3.2/2.2-3.1 cm/m2 LVIDs: 3.24 2.0-3.6 cm LVPWd: 0.68 0.7-1.1 cm LA Diam: 3.70 2.7-3.8/3.0-4.0 cm LAIDs Index: 1.87 1.5-2.3 cm/m2 LV Mass: 159.41 67-162/88-224 g LV Mass Index: 80.51 43-95/49-115 g/m2 LVOT Diam: 2.40 3.0+(-)1.3 cm Mitral Valve MV Pk E: 0.43 MV PK A: 0.47 MV Decel Time: 211.00 E/A: 0.90 E'Lateral: 6.85 E'Medial: 5.87 E/E' Med: 7.40 E/E' Lat: 6.30 PHT: 62.00 MVA PHT: 3.55 Decel [place]: 2.05 Aortic Valve AoV Pk Carroll: 1.09 AoV Pk Grad: 5.00 ALYSHA: 4.00 LVOT LVOT Pk Carroll: 0.92 LVOT Mn Carroll: 0.62 LVOT VTI: 0.19 LVOT Pk Grad: 3.00 LVOT Mn Grad: 2.00 LVOT Diam: 2.40 LVOT Area: 4.52 Diastolic Function MV Pk E: 0.43 MV Pk A: 0.47 E/A: 0.90 E'Medial: 5.87 E/E' Med: 7.40 E' Laterial: 6.85 E/E' Lat: 6.30 Right Ventricle TAPSE (mm): 24.40 TVS' Carroll: 13.40 Tricuspid Valve TR Pk Carroll: 1.98 TR Pk Grad: 16.00 RA Press: 3.00 RVSP: 19.00 Great Vessels Aorta Sinus of Valsalva: 3.60 2.0-3.5 cm Ao Asc: 3.20 2.1-3.4 cm Pulmonary Veins Pulm Vein S/D 1.20 Pulmonary Valve PV Pk Carroll: 1.22 Peak PV Grad: 6.00 Updated in Other Vendor System with Status of Final Matt Guzman MD electronically signed on 12/04/2024 1:57:24 PM with status of Final
== END ==
LOC: HO.CARD 12:49
PROVIDERS: PCP Internal Medicine; Visit Provider Internal Medicine
DX: I48.0 Paroxysmal atrial fibrillation (principal)
CPT/HCPCS: 93306

== ENCOUNTER → 2024-12-03 12:53 | Outpatient (BNV) | payer MEDICARE, SELFPAY | PROVIDERS: PCP Internal Medicine; Visit Provider Internal Medicine Cardiovascular Disease | DX: I48.0 Paroxysmal atrial fibrillation (principal) | CPT/HCPCS: 93306 ==

== ENCOUNTER → 2024-12-04 09:19 | Outpatient (REF) | payer MEDICARE, SELFPAY ==
--- NOTE | 2024-12-04 09:24 | CA_ITS ---
Acquisition Time: 2024-12-04 09:43:13 Total Exercise Time: 00:07:15 Test Indications: Abnormal ECG AFIB Medications: ELIQUIS FINASTERIDE FLECAINIDE METOPROLOL TAMSULOSIN METOCARBOMAL Protocol: RAISA Max HR: 129 BPM 92% of Pred: 140 BPM Max BP: 150/80 mmHG Max Work Load: 8.9 METS Exercise stress test with exercise 7 mins 15 secs of Raisa Protocol, achieving 87% MPHR, with reports of mild SOB, no chest pain, with frequent PACs and PVCs, one vent couplet and brief atrial runs- max 4 beats, with normotensive response to exercise. Without EKG changes meeting criteria for ischemia. In recovery, breathing returned to baseline. Nuclear images pending. Test reviewed with Dr. Guzman. Referred By: Janes Mullins Electronically Signed By: John Sosa
--- OUTSIDE RECORDS SUMMARY | 2024-12-04 09:43 | XMS_ITS | Data Portability ---
Author Organization [place] - [facility], Allergy Address [address] [place] [phone] Care Team Providers Care Field Application Engineer Name Role Phone JACOB LEAVITT Referring Provider [phone] Assessment No assessment recorded. Plan of Treatment [...] By Organization Details Last Modified Time 05/11/2024 93197 Patient with longstanding history of hearing loss [...] contr ast No observ ation record ed. [email or web address] Not Available 04/24 11:33:59 05/12/20 audio gram No observ ation record ed. [email or web address] Not Available 2023 10:31:40 Result Notes None recorded. Problems Name Problem SNOMED Code Status Onset Date Resolution Date Notes Provider Name and Address Organization Details Recorded Time Sensorineural hearing loss of bilateral ears 201129378 Active 2023 ALEX SHERMAN MD [address] [facility], [facility] [place], [address], [place] - [facility] 10:42:25 Impairment of balance 987888210 Active 2023 ALEX SHERMAN MD [address] [facility], [facility] [place], [address], [place] - [facility] 10:42:30 Abnormal auditory perception 35691097 Active 2023 ALEX SHERMAN MD [address] [facility], [facility] [place], [address], [place] - [facility] 10:42:55 Problem Notes None recorded. Procedures Surgical History Date Name Laterality Status Provider Name and Address Organization Details Recorded Time 05/11/20 24 Comp Audio with Tymps - 90219 & 35438 completed EDITH REBOLLEDO [address] [address], [place], [address], [facility] - [facility] 05/11/2024 11:02:56 Appendectomy completed Elaine Arce [facility] 05/11/2024 09:55:37 cholecystectomy completed Elaine Arce [place] - [facility] 05/11/2024 09:55:43 arthroscopy of knee completed Elaine Arce [place] - [facility] 05/11/2024 09:55:52 Cataract Surgery completed Elaine Arce [place] - [facility] 05/11/2024 09:56:07 transurethral prostatectomy completed Elaine Arce [facility] 05/11/2024 09:56:15 Imaging Results None recorded. Procedure Notes None recorded. Medical Equipment None Reported. Allergies Allergen ID Allergen Name Allergen Category Reaction Reaction Severity Criticality Documentation Date Start Date Code Code System Note Provider Name and Address Organization Details Recorded Time 263465 lorazepam medicatio n Not available Not available Not available 05/11/2024 6470 RxNorm Elaine vazquez [place] - [facility] 4 09:54:23 960686 Bactrim medicatio n Not available Not available Not available 05/11/2024 61215 9 RxNorm Elaine vazquez [place] - [facility] 4 10:21:08 Medications Name Sig Start [...] Details Last Updated DateTime 05/11/2024 171.45 cm 49549.85 g Elaine Arce [place] - [facility] 05/11/2024 09:56:34 Social History None recorded. Functional Status None recorded. Mental Status None recorded. Family History Nothing Reported. Medical History Condition Response Allergies/Hayfever Y GERD/Reflux Y Past Encounters Encounter ID Performer Location Encounter Start Date Encounter Closed Date Diagnosis/Indication Diagnosis SNOMED-CT Code Diagnosis ICD10 Code Diagnosis Note [id number] ALEX BORRERO MD [facility] [address] [address] 05/11/2024 09:49:39 05/11/2024 11:28:48 Sensorineural hearing loss of bilateral ears 242787374 H90.3 Audiologic al evaluation results: Right ear: Mild sloping to profound sensorineu ral hearing loss with excellent word recognitio n. Left ear: Severe sloping to profound sensorineu ral hearing loss with no measurable word recognitio n. Tympanomet ry: Right Ear:Type A Left Ear:Type A Impairment of balance 38 6327244 R26.89 Abnormal a uditory perception 85426242 H93.291 Has had fullness sensation in his [...] Member ID Guarantor Name 05/11/2024 1 MEDICARE B-[place]: [employer] Adan Boone Jr [id number] Adan Boone Jr 05/11/2024 1 [facility] - MEDICARE ADVANTAGE PLAN (MEDICARE REPLACEMENT HMO) [id number] Adan Boone Jr [id number] dAan Boone Jr Notes Date Note Type Note [...] of paroxysmal atrial fibrillation ALEX ZAMUDIO MD [address] [place] [address], [address], [facility] - [facility] 05/11/2024 11:26:55
== END ==
LOC: HO.CARD 09:19
PROVIDERS: PCP Internal Medicine; Visit Provider Internal Medicine
DX: R07.2 Precordial pain (principal); I48.0 Paroxysmal atrial fibrillation
CPT/HCPCS: 78452; 93017; A9500; J0280; J2785

== ENCOUNTER → 2024-12-04 09:24 | Outpatient (BNV) | payer MEDICARE, SELFPAY | PROVIDERS: PCP Internal Medicine | DX: R06.02 Shortness of breath (principal); I49.1 Atrial premature depolarization; I49.3 Ventricular premature depolarization | CPT/HCPCS: 78452; 93016; 93018 ==

== ENCOUNTER → 2024-12-11 12:32 | Outpatient (REF) | payer MEDICARE, SELFPAY ==
--- NOTE | 2024-12-11 12:34 | HM_ITS ---
Conclusion: 1. Patient was monitored for total period of 6 days and 22 hours 2. Baseline was normal sinus rhythm with average heart of 56 beats per minute 3. Frequent sinus bradycardia noted with total burden of 68.5% without significant pauses 4. Occasional PVCs noted with total burden of 0.3% 5. No patient reported events MTDD
--- OUTSIDE RECORDS SUMMARY | 2024-12-11 12:35 | XMS_ITS | Data Portability ---
Author Organization [place] - [facility], Allergy Address [address] [place] [address] Care Team Providers Care Final Inspector Movement Assembly Name Role Phone JACOB LEAVITT Referring Provider [...] By Organization Details Last Modified Time 05/11/2024 [id number] Patient with longstanding history of hearing loss [...] contr ast No observ ation record ed. [email or web address] Not Available 04/24 11:33:59 05/12/20 audio gram No observ ation record ed. BARCODE Not Available 2023 10:31:40 Result Notes None recorded. Problems Name Problem SNOMED Code Status Onset Date Resolution Date Notes Provider Name and Address Organization Details Recorded Time Sensorineural hearing loss of bilateral ears 235883782 Active 2023 ALEX SHERMAN MD 100 [facility], [address], [facility] [place], [address], [place] - [facility] 10:42:25 Impairment of balance 830205043 Active 2023 ALEX SHERMAN MD 100 [facility], [address], [facility] [place], [address], [place] - [facility] 10:42:30 Abnormal auditory perception 98148753 Active 2023 ALEX SHERMAN MD 100 [facility], [address], [facility] [place], [address], [place] - [facility] 10:42:55 Problem Notes None recorded. Procedures Surgical History Date Name Laterality Status Provider Name and Address Organization Details Recorded Time 05/11/20 24 Comp Audio with Tymps - 09606 & 97453 completed EDITH REBOLLEDO [address] [address], [place], [address], [facility] - [facility] 05/11/2024 11:02:56 Appendectomy completed Elaine Arce [facility] 05/11/2024 09:55:37 cholecystectomy completed Elaine Arce [place] - [facility] 05/11/2024 09:55:43 arthroscopy of knee completed Elaine Arce [place] - [facility] 05/11/2024 09:55:52 Cataract Surgery completed Elaine Arce [place] - [facility] 05/11/2024 09:56:07 transurethral prostatectomy completed Elaine Arce [facility] 05/11/2024 09:56:15 Imaging Results None recorded. Procedure Notes None recorded. Medical Equipment None Reported. Allergies Allergen ID Allergen Name Allergen Category Reaction Reaction Severity Criticality Documentation Date Start Date Code Code System Note Provider Name and Address Organization Details Recorded Time 419134 lorazepam medicatio n Not available Not available Not available 05/11/2024 6470 RxNorm Elaine vazquez [place] - [facility] 4 09:54:23 735966 Bactrim medicatio n Not available Not available Not available 05/11/2024 96782 9 RxNorm Elaine vazquez [place] - [facility] 4 10:21:08 Medications Name Sig Start [...] Details Last Updated DateTime 05/11/2024 171.45 cm 24528.85 g Elaine Arce [place] - [facility] 05/11/2024 09:56:34 Social History None recorded. Functional Status None recorded. Mental Status None recorded. Family History Nothing Reported. Medical History Condition Response Allergies/Hayfever Y GERD/Reflux Y Past Encounters Encounter ID Performer Location Encounter Start Date Encounter Closed Date Diagnosis/Indication Diagnosis SNOMED-CT Code Diagnosis ICD10 Code Diagnosis Note [id number] ALEX BORRERO MD [facility] [address] [address] 05/11/2024 09:49:39 05/11/2024 11:28:48 Sensorineural hearing loss of bilateral ears 842420615 H90.3 Audiologic al evaluation results: Right ear: Mild sloping to profound sensorineu ral hearing loss with excellent word recognitio n. Left ear: Severe sloping to profound sensorineu ral hearing loss with no measurable word recognitio n. Tympanomet ry: Right Ear:Type A Left Ear:Type A Impairment of balance 38 0410323 R26.89 Abnormal a uditory perception 58833705 H93.291 Has had fullness sensation in his [...] ID Guarantor Name 05/11/2024 1 [place]IC[place]: [employer] [facility] SERVICES Adan Boone Jr [id number] Adan Boone Jr 05/11/2024 1 [facility] - MEDICARE ADVANTAGE PLAN (MEDICARE REPLACEMENT HMO) [id number] Adan Boone Jr [id number] Adan Boone Jr Notes Date Note Type [...] of paroxysmal atrial fibrillation ALEX ZAMUDIO MD [address] [place] [address], [address], [facility] - [facility] 05/11/2024 11:26:55
== END ==
LOC: HO.CARD 12:32
PROVIDERS: PCP Internal Medicine; Visit Provider Internal Medicine
DX: I48.0 Paroxysmal atrial fibrillation (principal)
CPT/HCPCS: 93242

== ENCOUNTER → 2024-12-11 12:34 | Outpatient (BNV) | payer MEDICARE, SELFPAY | PROVIDERS: PCP Internal Medicine; Visit Provider Internal Medicine Cardiovascular Disease | DX: I49.3 Ventricular premature depolarization (principal) | CPT/HCPCS: 93244 ==

== ENCOUNTER 2024-12-15 14:53 | Outpatient (AMB) | payer MEDICARE, SELFPAY ==
--- NOTE | 2024-12-15 14:55 | MHC.PC.OV ---
Vital Signs 12/15/24 15:04 Height 5 ft 7.13 in Weight 176 lb BMI 27.5 BP 118/66 Blood Pressure Location Rt brachial Position Sitting Respiration 16 Pulse 62 Pulse Source Pulse Oximeter Temp 97.5 F Temp Source Temporal Artery Scan Pulse Oximetry (%) 94 Oxygen Delivery Method Room Air Intake Visit Reasons: Physical - see comments Accompanied by: Self / Same As Patient Allergies lorazepam (From ATIVAN) Allergy (Unknown, Verified 12/15/24 14:57) CONFUSION sulfamethoxazole (From Bactrim) Allergy (Unknown, Verified 12/15/24 14:57) Unknown trimethoprim (From Bactrim) Allergy (Unknown, Verified 12/15/24 14:57) Unknown Tobacco use date assessed: 12/15/24 Fall risk assessment: No Falls in past year Last assessed Fall Risk: 12/15/24 Dental Screening Dental Screen Date: 12/15/24 Did you have a dental visit in the last 12 months?: Yes Did you have a dental problem in the last 6 months where you did not have access to dental care?: No Was dental information given to patient?: Patient has dentist PENDING SALE TO [facility] Surgical History History of colonoscopy (~11/24/18) History of arthroscopy of both knees History of cholecystectomy History of appendectomy Family History (Updated 12/15/24 @ 15:14 by SMA Castro) Father Lung cancer Mother Brain cancer Social History (Updated 12/15/24 @ 15:14 by SMA Castro) Housing: House Alcohol intake: current Alcohol intake frequency: does not drink Patient Tobacco Use Status: Never used Tobacco service: No Current occupational status: retired Cognitive needs: No Hearing needs: Yes (b/l hearing aids) Vision needs: Yes (reading glasses) Questionnaire PHQ-9 Over the last 2 weeks, how often have you been bothered by any of the following problems? 1. Little interest or pleasure in doing things: not at all 2. Feeling down, depressed, or hopeless: not at all 3. Trouble falling or staying asleep, or sleeping too much: not at all 4. Feeling tired or having little energy: not at all 5. Poor appetite or overeating: not at all 6. Feeling bad about yourself - or that you are a failure or have let yourself or your family down: not at all 7. Trouble concentrating on things, such as reading the newspaper or watching television: not at all 8. Moving or speaking so slowly that other people could have noticed. Or the opposite - being so fidgety or restless that you have been moving around a lot more than usual: not at all 9. Thoughts that you would be better off or of hurting yourself in some way: not at all Total score: 0 Source: Developed by Drs. John Linares, Maida Spring, Alvin Rangel and colleagues, with an educational jen from [employer]. Thrive Questionnaire Date Thrive assessed: 12/15/24 I am a: Patient What is your living situation today?: I have a steady place to live Within the past 12 months, did the food you bought not last and you didn't have the money to get more?: Never true Within the past 12 months, did you worry whether your food would run out before you got money to buy more?: Never true Do you have trouble paying for medicines?: No Do you have trouble getting transportation to medical appointments?: No Do you have trouble paying your heating and electricity bill?: No Do you have trouble taking care of your child, family member or friend?: No Do you have trouble with day-to-day activities such as bathing, preparing meals, shopping, managing finances, etc.?: No Are you currently unemployed and looking for a job?: No Are you interested in more education?: No Please select the resources that you would like help with: None Currently or been in a relationship where the following occur: No concerns reported THRIVE Score: 0 AUDIT C Alcohol Use Questionnaire (AUDIT-C) 1. How often do you have a drink containing alcohol?: Never 3. How often do you have six or more drinks on one occasion?: Never Total Score: 0 MARCELA-7 AMB Questionnaire MARCELA-7 Date MARCELA - 7 assessed: 12/15/24 Feeling nervous, anxious, or on edge: 0 = Not at all Not being able to stop or control worryin = Not at all Worrying too much about different things: 0 = Not at all Trouble relaxin = Not at all Being so restless that it is hard to sit still: 0 = Not at all Becoming easily annoyed or irritable: 0 = Not at all Feeling afraid as if something awful might happen: 0 = Not at all Total MARCELA-7 score (0-4 normal; 5-9 mild; 10-14 moderate; 15-21 severe): 0 Source: Developed by Drs. John Linares, Maida Spring, Alvin Rangel and colleagues, with an educational jen from [employer]. Physical exam (Primary Care) Vital Signs: Last Vital Signs Temp 97.5 F 12/15/24 15:04 Pulse 62 12/15/24 15:04 Resp 16 12/15/24 15:04 BP 118/66 12/15/24 15:04 Pulse Ox 94 12/15/24 15:04 Oxygen Delivery Method Room Air 12/15/24 15:04 BMI result Body Mass Index 27.5 Tobacco/Smoking Status: Tobacco use Status Tobacco use date assessed 12/15/24 12/15/24 15:01 Patient Tobacco Use Status Never used Tobacco 12/15/24 15:15 PHQ-9: PHQ-9 Score PHQ-9: Total score 0 12/15/24 15:01 Thrive Assessment: Date of Thrive Assessment Date Thrive assessed 12/15/24 12/15/24 15:01 Currently or been in a relationship where the following occur: No concerns reported Coding Level of Care Code New Pt Level 4 (91705) Complex EM visit Add On G2211 Diagnoses PAF (paroxysmal atrial fibrillation) I48.0 Assessment & Plan Assessment & Plan (1) PAF (paroxysmal atrial fibrillation): Code(s): I48.0 - Paroxysmal atrial fibrillation Category: Medical Plan: Condition is stable. Continue anticoagualant Plan History of Present Illness - The patient is an 79-year-old male presenting with routine follow-up and monitoring. - Recently completed a stress test with favorable results. - Currently under cardiac monitoring until Saturday. - Recent blood work was conducted for Dr. Mclean, though details were not provided. 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 Review of Systems - General: Denies any current health concerns or pain. Physical Exam General: Cooperative and healthy appearing Nutritional Appearance: Well nourished Orientation/consciousness: Patient oriented x3 Limitations: No limitations Head: Normal to inspection General: Appearance normal, both eyes and all related structures Neck: Normal visual inspection Chest: Normal palpation of entire chest wall Respiratory: Normal respiratory effort Neurology: Patient oriented x3 Results - Stress test: Completed with good results. - Cardiac monitoring: Ongoing until Saturday. Plan 1. Stress Test - The stress test was completed with good results, indicating no immediate cardiac concerns. 2. Cardiac Monitoring - The patient is to continue wearing the surveillance system monitor until Saturday for further evaluation. Discussion Notes The patient was informed about the good results of the stress test and the ongoing cardiac monitoring until Saturday. No additional concerns were raised during the visit. Patient Instructions - Continue wearing the surveillance system monitor until Saturday as instructed.
[2024-12-15 15:04] VITALS: BP 118/66; PULSE 62; RESP 16; TEMP 36.4; O2SAT 94; BMI 27.5
--- OUTSIDE RECORDS SUMMARY | 2024-12-15 18:07 | XMS_ITS | Data Portability ---
Author Organization [place] - [facility], Allergy Address [address] [address] Care Team Providers Care Insurance Compliance Analyst Name Role Phone JACOB LEAVITT Referring Provider [...] By Organization Details Last Modified Time 05/11/2024 [id number] Patient with longstanding history of hearing loss [...] contr ast No observ ation record ed. [email or web address] Not Available 04/24 11:33:59 05/12/20 audio gram No observ ation record ed. BARCODE Not Available 2023 10:31:40 Result Notes None recorded. Problems Name Problem SNOMED Code Status Onset Date Resolution Date Notes Provider Name and Address Organization Details Recorded Time Sensorineural hearing loss of bilateral ears 640105032 Active 2023 ALEX SHERMAN MD 100 [facility],[address] [address], [place], [address], [place] - [facility] 4 10:42:25 Impairment of balance 788679150 Active 2023 ALEX SHERMAN MD 100 [facility],[address] [address], [place], [address], [place] - [facility] 4 10:42:30 Abnormal auditory perception 36526881 Active 2023 ALEX SHERMAN MD 100 [facility],[address] [address], [place], [address], [place] - [facility] 10:42:55 Problem Notes None recorded. Procedures Surgical History Date Name Laterality Status Provider Name and Address Organization Details Recorded Time 05/11/20 24 Comp Audio with Tymps - 79926 & 83869 completed EDITH REBOLLEDO [address], [address], [facility] - [facility] 05/11/2024 11:02:56 Appendectomy completed Elaine Arce [facility] 05/11/2024 09:55:37 cholecystectomy completed Elaine Arce [place] [facility] 05/11/2024 09:55:43 arthroscopy of knee completed Elaine Arce [facility] 05/11/2024 09:55:52 Cataract Surgery completed Elaine Arce [place] [facility] 05/11/2024 09:56:07 transurethral prostatectomy completed Elaine Arce [facility] 05/11/2024 09:56:15 Imaging Results None recorded. Procedure Notes None recorded. Medical Equipment None Reported. Allergies Allergen ID Allergen Name Allergen Category Reaction Reaction Severity Criticality Documentation Date Start Date Code Code System Note Provider Name and Address Organization Details Recorded Time 105809 lorazepam medicatio n Not available Not available Not available 05/11/2024 6470 RxNorm Elaine vazquez [place] - [facility] 4 09:54:23 178285 Bactrim medicatio n Not available Not available Not available 05/11/2024 47182 9 RxNorm Elaine vazquez [place] - [facility] 4 10:21:08 Medications Name Sig Start Date [...] Details Last Updated DateTime 05/11/2024 171.45 cm 37883.85 g Elaine Arce [place] - [facility] 05/11/2024 09:56:34 Social History None recorded. Functional Status None recorded. Mental Status None recorded. Family History Nothing Reported. Medical History Condition Response Allergies/Hayfever Y GERD/Reflux Y Past Encounters Encounter ID Performer Location Encounter Start Date Encounter Closed Date Diagnosis/Indication Diagnosis SNOMED-CT Code Diagnosis ICD10 Code Diagnosis Note [id number] ALEX BORRERO MD [facility] [address] [place] [address] 05/11/2024 09:49:39 05/11/2024 11:28:48 Sensorineural hearing loss of bilateral ears 937013127 H90.3 Audiologic al evaluation results: Right ear: Mild sloping to profound sensorineu ral hearing loss with excellent word recognitio n. Left ear: Severe sloping to profound sensorineu ral hearing loss with no measurable word recognitio n. Tympanomet ry: Right Ear:Type A Left Ear:Type A Impairment of balance 38 6913855 R26.89 Abnormal a uditory perception 68226588 H93.291 Has had fullness sensation in his [...] Member ID Guarantor Name 05/11/2024 1 MEDICARE [place]: [employer] SERVICES Adan Boone Jr [id number] Adan Boone Jr 05/11/2024 1 [facility] - MEDICARE ADVANTAGE PLAN (MEDICARE REPLACEMENT HMO) [id number] Adan Boone Jr [id number] Adan Boone Jr Notes Date Note Type [...] of paroxysmal atrial fibrillation ALEX ZAMUDIO MD [address] [place] [address], [address], [place] - [facility] 05/11/2024 11:26:55
== END 2024-12-15 15:36 | disposition home or self-care (01) ==
LOC: HO.HMCSH 14:53
PROVIDERS: PCP Internal Medicine; Visit Provider Internal Medicine
DX: I48.0 Paroxysmal atrial fibrillation (principal)

== ENCOUNTER → 2024-12-15 14:53 | Outpatient (BNVA) | payer MEDICARE, SELFPAY | PROVIDERS: PCP Internal Medicine; Visit Provider Internal Medicine | DX: I48.0 Paroxysmal atrial fibrillation (principal) | CPT/HCPCS: 96127; 99202 ==

== ENCOUNTER 2024-12-22 07:06 | Outpatient (REF) | payer MEDICARE, SELFPAY ==
[2024-12-22 07:46] LABS: Hematocrit 43.9 % (42.0-52.0); Hemoglobin 14.8 g/dl (14.0-18.0); Mean Corpuscular HGB Conc 33.7 g/dl (31.0-36.0); Mean Corpuscular Hemoglobin 29.7 pg (27.0-33.0); Mean Corpuscular Volume 88.0 fL (80.0-98.0); NRBC Abs Auto 0.000 X10*3/uL (0.0-0.012); NRBC Pct Auto 0.0 /100WBC (0.0-0.2); Platelet Count 226 X10*3/uL (160-400); Red Blood Count 4.99 X10*6/uL (4.60-5.80); White Blood Count 5.8 X10*3/uL (4.8-10.8)
[2024-12-22 08:19] LABS: Alanine Aminotransferase 26 U/L (0-40); Albumin Level 4.0 g/dL (3.5-5.0); Alkaline Phosphatase 87 U/L (39-117); Anion Gap 10 (12-20); Aspartate Amino Transferase 30 U/L (5-37); Blood Urea Nitrogen 16 mg/dL (9-16); Calcium 9.5 mg/dL (8.4-10.2); Carbon Dioxide 29 mmol/L (22-29); Chloride 106 mmol/L (96-108); Cholesterol 154 mg/dL (<200); Estimated Glomerular Filt Rate > 60; HDL Cholesterol 50 mg/dL (>40); Potassium 4.1 mmol/L (3.3-5.1); Sodium 141 mmol/L (135-145); Total Protein 6.1 g/dL (6.5-8.0); Triglycerides 84 mg/dL (<150)
[2024-12-22 08:35] LABS: Thyroid Stimulating Hormone 1.13 uIU/mL (0.32-4.0)
[2024-12-22 10:53] LABS: Appearance Urine Clear; Glucose Urine UA Negative (Negative); PH 5.5 (5.0-9.0); Specific Gravity - Urine 1.020 (1.005-1.025)
== END 2024-12-22 07:07 | disposition home or self-care (01) ==
LOC: HO.LAB 07:06
PROVIDERS: PCP Internal Medicine; Visit Provider Internal Medicine
DX: R00.2 Palpitations (principal); M54.50 Low back pain, unspecified
CPT/HCPCS: 36415; 80048; 80061; 80076; 81003; 84443; 85027

== ENCOUNTER 2025-01-07 12:48 | Outpatient (REF) | payer SELFPAY ==
--- OUTSIDE RECORDS SUMMARY | 2025-01-07 13:14 | XMS_ITS | Data Portability ---
Author Organization [place] - [facility], [facility] Address [address] [address] Care Team Providers Care Service Station Helper Name Role Phone JACOB LEAVITT Referring Provider [...] By Organization Details Last Modified Time 05/11/2024 [id number] Patient with longstanding history of hearing loss [...] Abnormal Flag Note LastModifiedBy Organization Detail LastModifiedTime 05/11/20 24 11/25/2023 MRI, brain + brain stem, w/wo contr ast No observ ation record ed. [email or web address] Not Available 04/24 11:33:59 05/12/20 audio gram No observ ation record ed. BARCODE Not Available 2023 10:31:40 Result Notes None recorded. Problems Name Problem SNOMED Code Status Onset Date Resolution Date Notes Provider Name and Address Organization Details Recorded Time Sensorineural hearing loss of bilateral ears 271042663 Active 2023 ALEX SHERMNA MD 100 [facility],[address] [address], [place], [address], [place] - [facility] 4 10:42:25 Impairment of balance 563166051 Active 2023 ALEX SHERMAN MD 100 [facility],[address] [address], [place], [address], [place] - [facility] 4 10:42:30 Abnormal auditory perception 25626072 Active 2023 ALEX SHERMAN MD 100 [facility],[address] [address], [place], [address], [place] - [facility] 10:42:55 Problem Notes None recorded. Procedures Surgical History Date Name Laterality Status Provider Name and Address Organization Details Recorded Time 05/11/20 24 Comp Audio with Tymps - 40432 & 10482 completed EDITH REBOLLEDO [address], [address], [facility] - [facility] 05/11/2024 11:02:56 Appendectomy completed Elaine Arce [facility] 05/11/2024 09:55:37 cholecystectomy completed Elaine Arce [place] [facility] 05/11/2024 09:55:43 arthroscopy of knee completed Elaine Arce [place] [facility] 05/11/2024 09:55:52 Cataract Surgery completed Elaine Arce [place] [facility] 05/11/2024 09:56:07 transurethral prostatectomy completed Elaine Arce [facility] 05/11/2024 09:56:15 Imaging Results None recorded. Procedure Notes None recorded. Medical Equipment None Reported. Allergies Allergen ID Allergen Name Allergen Category Reaction Reaction Severity Criticality Documentation Date Start Date Code Code System Note Provider Name and Address Organization Details Recorded Time 749979 lorazepam medicatio n Not available Not available Not available 05/11/2024 6470 RxNorm Elaine vazquez [place] - [facility] 4 09:54:23 088348 Bactrim medicatio n Not available Not available Not available 05/11/2024 52179 9 RxNorm Elaine vazquez [place] - [facility] 4 10:21:08 Medications Name Sig Start [...] Details Last Updated DateTime 05/11/2024 171.45 cm 83222.85 g Elaine Arce [place] - [facility] 05/11/2024 09:56:34 Social History None recorded. Functional Status None recorded. Mental Status None recorded. Family History Nothing Reported. Medical History Condition Response Allergies/Hayfever Y GERD/Reflux Y Past Encounters Encounter ID Performer Location Encounter Start Date Encounter Closed Date Diagnosis/Indication Diagnosis SNOMED-CT Code Diagnosis ICD10 Code Diagnosis Note [id number] ALEX BORRERO MD [facility] [address] [place] [address] 05/11/2024 09:49:39 05/11/2024 11:28:48 Sensorineural hearing loss of bilateral ears 560359321 H90.3 Audiologic al evaluation results: Right ear: Mild sloping to profound sensorineu ral hearing loss with excellent word recognitio n. Left ear: Severe sloping to profound sensorineu ral hearing loss with no measurable word recognitio n. Tympanomet ry: Right Ear:Type A Left Ear:Type A Impairment of balance 38 5460776 R26.89 Abnormal a uditory perception 83488323 H93.291 Has had fullness sensation in his [...] Member ID Guarantor Name 05/11/2024 1 [place]ICARE [place]: [employer] SERVICES Adan Boone Jr [id number] Adan Boone Jr 05/11/2024 1 [facility] - MEDICARE ADVANTAGE PLAN (MEDICARE REPLACEMENT HMO) [id number] Adan Boone Jr [id number] Adan Boone Jr Notes Date Note Type [...] paroxysmal atrial fibrillation ALEX ZAMUDIO MD [address] [place] [address], [address], [place] - [facility] 05/11/2024 11:26:55
--- NOTE | 2025-01-08 08:35 | MHC.AU.HA3 ---
Hearing Instrument Follow-Up- Binaural Date of Visit: 01/08/25 Right Ear: Make, Model, Color, Serial Number: Carlos Silva [id number] SN: [id number] Color: Silver Gonzalez Mechanical Press Operator Repair Warranty: 07/30/2021 Mechanical Press Operator Loss and Damage Warranty: 07/30/2021 [facility] Service Plan: 07/30/2021 Battery Size: 312 Supervisor Home Energy Consultant/Slim Tube: Size 2 slim tube Earmold/Dome/CShell/SlimTip:Slim tip SN: [id number] Kaitlin: 09/23/2018 Type of Wax Guard: Dispensed By: [facility] Date of Fittin05/19/2018 Left Ear: Make, Model, Color, Serial Number: Carlos N[place]OLES [id number] SN: [id number] Color: Silver Gonzalez Mechanical Press Operator Repair Warranty: 07/30/2019 Mechanical Press Operator Loss and Damage Warranty: 07/30/2019 [facility] Service Plan: 07/30/2021 Battery Size: 312 Supervisor Home Energy Consultant/Slim Tube: 2 CROS wire Earmold/Dome/CShell/SlimTip: CROS tip - SN: [id number] Kaitlin: 11/17/2022 Type of Wax Guard: Dispensed By: [facility] Date of Fittin05/19/2018 Follow-Up Summary: Right SALINAS dropped off 01/07 complaint of wax guard tube comes off . Found slim tube not holding in earmold. Cleaned aid and ran through dehumidifier. Cleaned earmold and glued in new gasket. Listening check positive. Earmold is in poor condition overall, recommend new, noted cost $65 on picker machine operator sheet, may need new impression. Recommendations: Recommendations: Hearing instrument follow-up or maintenance as needed. Diagnosis Code(s): Primary Diagnosis: H90.3 Bilateral Sensorineural Hearing Loss Signature: Provider: Sabra Del Real, CCC-A
== END 2025-01-07 12:49 | disposition home or self-care (01) ==
LOC: HO.HAP 12:48
PROVIDERS: Visit Provider Internal Medicine
DX: Z13.89 Encounter for screening for other disorder (principal)

== ENCOUNTER 2025-01-08 13:15 | Outpatient (REF) | payer SELFPAY ==
--- OUTSIDE RECORDS SUMMARY | 2025-01-08 13:18 | XMS_ITS | Data Portability ---
Author Organization [place] - [facility], Allergy Address [address] [address] Care Team Providers Care Student Success Counselor Name Role Phone JACOB LEAVITT Referring Provider [phone] Assessment No assessment recorded. Plan of Treatment [...] By Organization Details Last Modified Time 05/11/2024 52237 Patient with longstanding history of hearing loss [...] contr ast No observ ation record ed. [email or web address] Not Available 04/24 11:33:59 05/12/20 audio gram No observ ation record ed. BARCODE Not Available 2023 10:31:40 Result Notes None recorded. Problems Name Problem SNOMED Code Status Onset Date Resolution Date Notes Provider Name and Address Organization Details Recorded Time Sensorineural hearing loss of bilateral ears 750983990 Active 2023 ALEX SHERMAN MD 100 [facility],[place] [address], [facility] [place], [address], [place] - [facility] 4 10:42:25 Impairment of balance 072773120 Active 2023 ALEX SHERMAN MD 100 [facility],[place] [address], [facility] [place], [address], [place] [facility] [place] 4 10:42:30 Abnormal auditory perception 77083380 Active 2023 ALEX SHERMAN MD 100 [facility],[place] [address], [facility] [place], [address], [place] [facility] 10:42:55 Problem Notes None recorded. Procedures Surgical History Date Name Laterality Status Provider Name and Address Organization Details Recorded Time 05/11/20 24 Comp Audio with Tymps - 39355 & 57551 completed EDITH REBOLLEDO [address], [address], [facility] - [facility] 05/11/2024 11:02:56 Appendectomy completed Elaine Arce [facility] 05/11/2024 09:55:37 cholecystectomy completed Elaine Arce [place] [facility] 05/11/2024 09:55:43 arthroscopy of knee completed Elaine Arce [facility] [place] 05/11/2024 09:55:52 Cataract Surgery completed Elaine Arce [facility] [place] 05/11/2024 09:56:07 transurethral prostatectomy completed Elaine Arce [facility] 05/11/2024 09:56:15 Imaging Results None recorded. Procedure Notes None recorded. Medical Equipment None Reported. Allergies Allergen ID Allergen Name Allergen Category Reaction Reaction Severity Criticality Documentation Date Start Date Code Code System Note Provider Name and Address Organization Details Recorded Time 358564 lorazepam medicatio n Not available Not available Not available 05/11/2024 6470 RxNorm Elaine vazquez [place] - [facility] 4 09:54:23 022474 Bactrim medicatio n Not available Not available Not available 05/11/2024 12388 9 RxNorm Elaine vazquez [place] - [facility] 4 10:21:08 Medications Name Sig Start [...] Details Last Updated DateTime 05/11/2024 171.45 cm 70290.85 g Elaine Arce [place] - [facility] 05/11/2024 09:56:34 Social History None recorded. Functional Status None recorded. Mental Status None recorded. Family History Nothing Reported. Medical History Condition Response Allergies/Hayfever Y GERD/Reflux Y Past Encounters Encounter ID Performer Location Encounter Start Date Encounter Closed Date Diagnosis/Indication Diagnosis SNOMED-CT Code Diagnosis ICD10 Code Diagnosis Note [id number] ALEX BORRERO MD [facility] [place] [address] [place] [address] 05/11/2024 09:49:39 05/11/2024 11:28:48 Sensorineural hearing loss of bilateral ears 118155731 H90.3 Audiologic al evaluation results: Right ear: Mild sloping to profound sensorineu ral hearing loss with excellent word recognitio n. Left ear: Severe sloping to profound sensorineu ral hearing loss with no measurable word recognitio n. Tympanomet ry: Right Ear:Type A Left Ear:Type A Impairment of balance 38 8873955 R26.89 Abnormal a uditory perception 84513349 H93.291 Has had fullness sensation in his [...] Member ID Guarantor Name 05/11/2024 1 MEDICARE B-[place]: [employer] Adan Boone Jr [id number] Adan Boone Jr 05/11/2024 1 [facility] - MEDICARE ADVANTAGE PLAN (MEDICARE REPLACEMENT HMO) [id number] Adan Boone Jr [id number] Adan Boone Jr Notes Date Note Type [...] of paroxysmal atrial fibrillation ALEX ZAMUDIO MD [address] [place] [address], [address], [place] - [facility] 05/11/2024 11:26:55
== END 2025-01-08 13:16 | disposition home or self-care (01) ==
LOC: HO.HAP 13:15
PROVIDERS: Visit Provider Internal Medicine
DX: H90.3 Sensorineural hearing loss, bilateral (principal)
CPT/HCPCS: 92593

== ENCOUNTER 2025-01-08 13:21 | Outpatient (REF) | payer SELFPAY | END 2025-01-08 13:22 | disposition home or self-care (01) | LOC: HO.HAP 13:21 | DX: Z13.89 Encounter for screening for other disorder (principal) ==

== ENCOUNTER 2025-01-11 13:06 | Outpatient (REF) | payer SELFPAY ==
--- OUTSIDE RECORDS SUMMARY | 2025-01-11 13:51 | XMS_ITS | Data Portability ---
Author Organization [place] - [facility], Allergy Address [address] [address] Care Team Providers Care Crop Adjuster Name Role Phone JACOB LEAVITT Referring Provider [...] By Organization Details Last Modified Time 05/11/2024 [id number] Patient with longstanding history of hearing loss [...] contr ast No observ ation record ed. Not Available 04/24 11:33:59 05/12/20 audio gram No observ ation record ed. BARCODE Not Available 2023 10:31:40 Result Notes None recorded. Problems Name Problem SNOMED Code Status Onset Date Resolution Date Notes Provider Name and Address Organization Details Recorded Time Sensorineural hearing loss of bilateral ears 173784561 Active 2023 ALEX SHERMAN MD 100 [facility],[place] [address], [place], [address], [place] [facility] 4 10:42:25 Impairment of balance 294532112 Active 2023 ALEX SHERMAN MD 100 [facility],[place] [address], [place], [address], [place] [facility] [place] 4 10:42:30 Abnormal auditory perception 14227227 Active 2023 ALEX SHERMAN MD 100 [facility],[place] [address], [place], [address], [place] [facility] 10:42:55 Problem Notes None recorded. Procedures Surgical History Date Name Laterality Status Provider Name and Address Organization Details Recorded Time 05/11/20 24 Comp Audio with Tymps - 74770 & 71236 completed EDTIH REBOLLEDO [address], [address], [facility] - [facility] 05/11/2024 11:02:56 Appendectomy completed Elaine Arce [facility] 05/11/2024 09:55:37 cholecystectomy completed Elaine Arce [facility] 05/11/2024 09:55:43 arthroscopy of knee completed Elaine Arce [facility] [place] 05/11/2024 09:55:52 Cataract Surgery completed Elaine Arce [facility] [place] 05/11/2024 09:56:07 transurethral prostatectomy completed Elaine Arce [facility] 05/11/2024 09:56:15 Imaging Results None recorded. Procedure Notes None recorded. Medical Equipment None Reported. Allergies Allergen ID Allergen Name Allergen Category Reaction Reaction Severity Criticality Documentation Date Start Date Code Code System Note Provider Name and Address Organization Details Recorded Time 221453 lorazepam medicatio n Not available Not available Not available 05/11/2024 6470 RxNorm Elaine vazquez [place] - [facility] 4 09:54:23 010022 Bactrim medicatio n Not available Not available Not available 05/11/2024 78182 9 RxNorm Elaine vazquez [place] - [facility] 4 10:21:08 Medications [...] Details Last Updated DateTime 05/11/2024 171.45 cm 56337.85 g Elaine Arce [place] - [facility] 05/11/2024 09:56:34 Social History None recorded. Functional Status None recorded. Mental Status None recorded. Family History Nothing Reported. Medical History Condition Response Allergies/Hayfever Y GERD/Reflux Y Past Encounters Encounter ID Performer Location Encounter Start Date Encounter Closed Date Diagnosis/Indication Diagnosis SNOMED-CT Code Diagnosis ICD10 Code Diagnosis Note [id number] ALEX BORRERO MD [facility] [place] [address] [place] [address] 05/11/2024 09:49:39 05/11/2024 11:28:48 Sensorineural hearing loss of bilateral ears 081541114 H90.3 Audiologic al evaluation results: Right ear: Mild sloping to profound sensorineu ral hearing loss with excellent word recognitio n. Left ear: Severe sloping to profound sensorineu ral hearing loss with no measurable word recognitio n. Tympanomet ry: Right Ear:Type A Left Ear:Type A Impairment of balance 38 6495343 R26.89 Abnormal a uditory perception 64237656 H93.291 Has had fullness sensation in his [...] ID Guarantor Name 05/11/2024 1 [place]ICARE [place]: [employer] Adan Boone Jr [id number] Adan Boone Jr 05/11/2024 1 [facility] - MEDICARE ADVANTAGE PLAN (MEDICARE REPLACEMENT HMO) [id number] Adan Boone Jr [id number] Adan Boone Jr Notes Date Note Type [...] of paroxysmal atrial fibrillation ALEX ZAMUDIO MD [address] [place] [address], [address], [place] - [facility] 05/11/2024 11:26:55
== END 2025-01-11 13:07 | disposition home or self-care (01) ==
LOC: HO.SH 13:06
PROVIDERS: Visit Provider Internal Medicine
DX: Z01.118 Encounter for examination of ears and hearing with other abnormal findings (principal)
CPT/HCPCS: 92593

== ENCOUNTER 2025-01-11 13:17 | Outpatient (REF) | payer SELFPAY | END 2025-01-11 13:18 | disposition home or self-care (01) | LOC: HO.HAP 13:17 | PROVIDERS: Visit Provider Internal Medicine | DX: Z13.89 Encounter for screening for other disorder (principal) ==

== ENCOUNTER 2025-01-12 11:12 | Outpatient (REF) | payer MEDICARE, SELFPAY | END 2025-01-12 11:13 | disposition home or self-care (01) | LOC: HO.HAP 11:12 | DX: Z13.89 Encounter for screening for other disorder (principal) ==

== ENCOUNTER 2025-01-19 14:05 | Outpatient (AMB) | payer MEDICARE, SELFPAY ==
--- NOTE | 2025-01-19 14:10 | A.OFFVIS_ITS ---
Vital Signs 01/19/25 14:11 Height 5 ft 9 in Weight 175 lb BMI 25.8 BP 90/60 Blood Pressure Location Lt brachial Position Sitting Pulse 57 Pulse Source Monitor Intake Visit Reasons: 5 wk s/p echo/holter/mibi Allergies lorazepam (From ATIVAN) Allergy (Unknown, Verified 12/15/24 14:57) CONFUSION sulfamethoxazole (From Bactrim) Allergy (Unknown, Verified 12/15/24 14:57) Unknown trimethoprim (From Bactrim) Allergy (Unknown, Verified 12/15/24 14:57) Unknown Medication List - Last Reconciled 01/19/25 by Janes Mullins MD apixaban (Eliquis) 5 mg PO BID ascorbic acid (vitamin C) ER 500 mg PO DAILY finasteride 5 mg PO DAILY flecainide 100 mg PO Q12H metoprolol succinate ER (Toprol XL) 25 mg PO DIRECTED 90 days tamsulosin mg PO HPI Comments Details: Adan returns for follow-up regarding paroxysmal atrial fibrillation. He is maintained on flecainide and a small dose of beta-jovanny. Also on Eliquis. Overall, he states he is feeling well. No cardiac symptoms at this time. [facility] Surgical History History of colonoscopy (~11/24/18) History of arthroscopy of both knees History of cholecystectomy History of appendectomy Family History (Updated 12/15/24 @ 15:14 by SMA Castro) Father Lung cancer Mother Brain cancer Social History (Updated 12/15/24 @ 15:14 by SMA Castro) Housing: House Alcohol intake: current Alcohol intake frequency: does not drink Patient Tobacco Use Status: Never used Tobacco service: No Current occupational status: retired Cognitive needs: No Hearing needs: Yes (b/l hearing aids) Vision needs: Yes (reading glasses) Review of Systems Const Denies weakness ENT Denies dizziness Card Denies chest pain, Denies chest pain with activity, Denies syncope, Denies rapid heart rate, Denies pedal edema, Denies edema, Denies leg edema, Denies lightheadedness, Denies palpitations, Denies dyspnea, Denies dyspnea on exertion and Denies orthopnea Resp Denies cough, Denies dyspnea and Denies dyspnea on exertion GI Denies hematochezia and Denies change in stool character Musc Denies abnormal gait, Denies muscle cramps, Denies muscle weakness, Denies numbness, Denies radiating pain into limb and Denies tingling Neuro Denies abnormal gait, Denies dizziness, Denies syncope, Denies numbness, Denies tingling and Denies weakness Endo Denies palpitations Physical Exam Vital Signs: Last Vital Signs Pulse 57 01/19/25 14:11 BP 90/60 01/19/25 14:11 BMI result Body Mass Index 25.8 Const General: comfortable and no acute distress Orientation/consciousness: patient oriented x3 HEENT Other: Unremarkable Head: Yes normal to inspection Neck Neck: Yes normal visual inspection Chest Chest palpation & inspection: normal inspection of the chest Resp Auscultation: clear to auscultation bilaterally Cardio Palpation: normal PMI Heart sounds: S1 normal heart sound present, S2 normal heart sound present, no gallops, no murmurs and no rubs GI Palpation (GI): Soft to palpation Back/Spine/Pelvis Other: unremarkable Skin General skin exam: no rashes or lesions noted Neuro General: patient oriented x3 Extrem General: Yes normal to inspection Psych Mental Status: mental status grossly normal Office Procedures EKG Details: EKG with underlying sinus bradycardia at 57/Min; no ischemic changes; [place]. [address]-Otvxytsxjpxmvdlug, Complete Assessment & Plan Assessment & Plan (1) PAF (paroxysmal atrial fibrillation): Code(s): I48.0 - Paroxysmal atrial fibrillation Category: Medical (2) Encounter for monitoring anti-arrhythmic therapy: Code(s): Z51.81 - Encounter for therapeutic drug level monitoring; Z79.899 - Other residential (current) drug therapy Category: Medical Plan Cardiac data summarized. Echocardiogram with LVEF of 60-65%. Otherwise unremarkable. Normal myocardial perfusion imaging study. Holter monitor shows underlying sinus rhythm with an average rate of 56/Min. Sinus bradycardia noted. No atrial fibrillation. Overall, well controlled atrial fibrillation on beta-blockers/flecainide. He can continue the same. We also discussed about EP referral and atrial fibrillation ablation but he would like to hold off on that for now. Otherwise, he will let us know if he has any other concerns. Follow up in 6 months. Discussion Notes I discussed with the patient the current management of atrial fibrillation with Flecainide and Eliquis, emphasizing the importance of regular blood work to monitor electrolytes and medication effects. We explored the option of Pulse Field Ablation, highlighting its advanced nature and shorter recovery time compared to older techniques. I advised the patient to consider this option if medication adjustments are needed in the future. Patient was informed and verbally consented to the use of an ambient scribe for clinic note documentation during this visit. Patient Instructions: - Continue taking medications as prescribed. - Schedule regular blood work every six months to monitor electrolytes. - Consider ablation if medication management becomes insufficient. Coding Level of Care Code Est Pt Level 4 (76499) Complex EM visit Add On G2211 Diagnoses PAF (paroxysmal atrial fibrillation) I48.0 Encounter for monitoring anti-arrhythmic therapy Z51.81; Z79.899 CPT Codes EKG - CPT: 24920-Dargxeairiwmndurs, Complete ([id number])
[2025-01-19 14:11] VITALS: BP 90/60; PULSE 57; BMI 25.8
--- OUTSIDE RECORDS SUMMARY | 2025-01-19 14:49 | XMS_ITS | Data Portability ---
Author Organization [place] - [facility], Allergy Address [address] [address] Care Team Providers Care Tack Picker Name Role Phone JACOB LEAVITT Referring Provider [...] By Organization Details Last Modified Time 05/11/2024 22557 Patient with longstanding history of hearing loss [...] contr ast No observ ation record ed. [email or web address] Not Available 04/24 11:33:59 05/12/20 audio gram No observ ation record ed. [email or web address] Not Available 2023 10:31:40 Result Notes None recorded. Problems Name Problem SNOMED Code Status Onset Date Resolution Date Notes Provider Name and Address Organization Details Recorded Time Sensorineural hearing loss of bilateral ears 761814613 Active 2023 ALEX SHERMAN MD 100 [facility],[place] [address], [place], [address], [place] - [facility] 4 10:42:25 Impairment of balance 028798908 Active 2023 ALEX SHERMAN MD 100 [facility],[place] [address], [place], [address], [place] - [facility] [place] 4 10:42:30 Abnormal auditory perception 35920456 Active 2023 ALEX SHERMAN MD 100 [facility],[place] [address], [place], [address], [place] - [facility] 10:42:55 Problem Notes None recorded. Procedures Surgical History Date Name Laterality Status Provider Name and Address Organization Details Recorded Time 05/11/20 24 Comp Audio with Tymps - 84264 & 68627 completed EDITH REBOLLEDO [address], [address], [facility] - [facility] 05/11/2024 11:02:56 Appendectomy completed Elaine Arce [facility] 05/11/2024 09:55:37 cholecystectomy completed Elaine Arce [facility] 05/11/2024 09:55:43 arthroscopy of knee completed Elaine Arce [facility] [place] 05/11/2024 09:55:52 Cataract Surgery completed Elaine Arce [facility] [place] 05/11/2024 09:56:07 transurethral prostatectomy completed Elaine Arce [facility] 05/11/2024 09:56:15 Imaging Results None recorded. Procedure Notes None recorded. Medical Equipment None Reported. Allergies Allergen ID Allergen Name Allergen Category Reaction Reaction Severity Criticality Documentation Date Start Date Code Code System Note Provider Name and Address Organization Details Recorded Time 517208 lorazepam medicatio n Not available Not available Not available 05/11/2024 6470 RxNorm Elaine vazquez [place] - [facility] 4 09:54:23 069140 Bactrim medicatio n Not available Not available Not available 05/11/2024 18315 9 RxNorm Elaine vazquez [place] - [facility] 4 10:21:08 Medications Name Sig Start [...] Details Last Updated DateTime 05/11/2024 171.45 cm 13666.85 g Elaine Arce [place] - [facility] 05/11/2024 09:56:34 Social History None recorded. Functional Status None recorded. Mental Status None recorded. Family History Nothing Reported. Medical History Condition Response Allergies/Hayfever Y GERD/Reflux Y Past Encounters Encounter ID Performer Location Encounter Start Date Encounter Closed Date Diagnosis/Indication Diagnosis SNOMED-CT Code Diagnosis ICD10 Code Diagnosis Note [id number] ALEX BORRERO MD [facility] [place] [address] [place] [address] 05/11/2024 09:49:39 05/11/2024 11:28:48 Sensorineural hearing loss of bilateral ears 937406001 H90.3 Audiologic al evaluation results: Right ear: Mild sloping to profound sensorineu ral hearing loss with excellent word recognitio n. Left ear: Severe sloping to profound sensorineu ral hearing loss with no measurable word recognitio n. Tympanomet ry: Right Ear:Type A Left Ear:Type A Impairment of balance 38 2314903 R26.89 Abnormal a uditory perception 17130311 H93.291 Has had fullness sensation in his [...] Member ID Guarantor Name 05/11/2024 1 MEDICARE B-[place]: [employer] Adan Boone Jr [id number] Adan Boone Jr 05/11/2024 1 [facility] MEDICARE ADVANTAGE PLAN (MEDICARE REPLACEMENT HMO) [id number] Adan Boone Jr [id number] Adan Boone Jr
== END 2025-01-19 14:37 | disposition home or self-care (01) ==
LOC: HO.HCS 14:05
PROVIDERS: PCP Internal Medicine; Visit Provider Internal Medicine
DX: I48.0 Paroxysmal atrial fibrillation (principal); Z51.81 Encounter for therapeutic drug level monitoring; Z79.899 Other long term (current) drug therapy
CPT/HCPCS: 93010; 99214; G2211

== ENCOUNTER → 2025-01-19 14:05 | Outpatient (BNVA) | payer MEDICARE, SELFPAY | PROVIDERS: PCP Internal Medicine; Visit Provider Internal Medicine | DX: I48.0 Paroxysmal atrial fibrillation (principal); Z51.81 Encounter for therapeutic drug level monitoring; Z79.899 Other long term (current) drug therapy | CPT/HCPCS: 93005; 99212 ==

== ENCOUNTER 2025-06-08 13:54 | Outpatient (AMB) | payer MEDICARE, SELFPAY ==
[2025-06-08 14:00] VITALS: BP 104/53; PULSE 58; RESP 14; TEMP 36.4; O2SAT 95; BMI 27.9
--- NOTE | 2025-06-08 14:00 | MHC.PC.OV ---
Vital Signs 06/08/25 14:00 Height 5 ft 8.11 in Weight 184 lb BMI 27.9 BP 104/53 L Blood Pressure Location Rt brachial Position Sitting Respiration 14 Pulse 58 Pulse Source Pulse Oximeter Temp 97.6 F Temp Source Temporal Artery Scan Pulse Oximetry (%) 95 Oxygen Delivery Method Room Air Intake Visit Reasons: 6 month follow up - see comments Grain Operator Required: No Accompanied by: Self / Same As Patient Allergies lorazepam (From ATIVAN) Allergy (Unknown, Verified 06/08/25 14:30) CONFUSION sulfamethoxazole (From Bactrim) Allergy (Unknown, Verified 06/08/25 14:30) Unknown trimethoprim (From Bactrim) Allergy (Unknown, Verified 06/08/25 14:30) Unknown Medication List - Last Reconciled 06/08/25 by Lavon Dominguez MD apixaban (Eliquis) 5 mg PO BID ascorbic acid (vitamin C) ER 500 mg PO DAILY finasteride 5 mg PO DAILY flecainide 100 mg PO Q12H metoprolol succinate ER (Toprol XL) 25 mg PO DIRECTED 90 days tamsulosin mg PO Tobacco use date assessed: 12/15/24 Dental Screening Dental Screen Date: 12/15/24 [facility] Surgical History History of colonoscopy (~11/24/18) History of arthroscopy of both knees History of cholecystectomy History of appendectomy Family History Father Lung cancer Mother Brain cancer Social History Housing: House Alcohol intake: current Alcohol intake frequency: does not drink Patient Tobacco Use Status: Never used Tobacco service: No Current occupational status: retired Cognitive needs: No Hearing needs: Yes (b/l hearing aids) Vision needs: Yes (reading glasses) Questionnaire PHQ-9 Over the last 2 weeks, how often have you been bothered by any of the following problems? 1. Little interest or pleasure in doing things: not at all 2. Feeling down, depressed, or hopeless: not at all 3. Trouble falling or staying asleep, or sleeping too much: not at all 4. Feeling tired or having little energy: not at all 5. Poor appetite or overeating: not at all 6. Feeling bad about yourself - or that you are a failure or have let yourself or your family down: not at all 7. Trouble concentrating on things, such as reading the newspaper or watching television: not at all 8. Moving or speaking so slowly that other people could have noticed. Or the opposite - being so fidgety or restless that you have been moving around a lot more than usual: not at all 9. Thoughts that you would be better off or of hurting yourself in some way: not at all Total score: 0 Depression Screening Interpretation: Negative Depression Screening Done: Yes [id number] - PHQ-9 Billing: Yes Source: Developed by Drs. John Linares, Maida Spring, Alvin Rangel and colleagues, with an educational jen from [employer]. Thrive Questionnaire Date Thrive assessed: 12/15/24 I am a: Patient What is your living situation today?: I have a steady place to live Within the past 12 months, did the food you bought not last and you didn't have the money to get more?: Never true Within the past 12 months, did you worry whether your food would run out before you got money to buy more?: Never true Do you have trouble paying for medicines?: No Do you have trouble getting transportation to medical appointments?: No Do you have trouble paying your heating and electricity bill?: No Do you have trouble taking care of your child, family member or friend?: No Do you have trouble with day-to-day activities such as bathing, preparing meals, shopping, managing finances, etc.?: No Are you currently unemployed and looking for a job?: No Are you interested in more education?: No Please select the resources that you would like help with: None Currently or been in a relationship where the following occur: No concerns reported THRIVE Score: 0 AUDIT C Alcohol Use Questionnaire (AUDIT-C) 1. How often do you have a drink containing alcohol?: Never 3. How often do you have six or more drinks on one occasion?: Never Total Score: 0 MARCELA-7 AMB Questionnaire MARCELA-7 Date MARCELA - 7 assessed: 12/15/24 Feeling nervous, anxious, or on edge: 0 = Not at all Not being able to stop or control worryin = Not at all Worrying too much about different things: 0 = Not at all Trouble relaxin = Not at all Being so restless that it is hard to sit still: 0 = Not at all Becoming easily annoyed or irritable: 0 = Not at all Feeling afraid as if something awful might happen: 0 = Not at all Total MARCELA-7 score (0-4 normal; 5-9 mild; 10-14 moderate; 15-21 severe): 0 Source: Developed by Drs. John Linares, Maida Spring, Alvin Rangel and colleagues, with an educational jen from [employer]. MARCELA-7 Assessment Billing MARCELA-7 Assessment Tool: MARCELA-7 Assessment 44601 Physical exam (Primary Care) Vital Signs: Last Vital Signs Temp 97.6 F 06/08/25 14:00 Pulse 58 06/08/25 14:00 Resp 14 06/08/25 14:00 BP 104/53 L 06/08/25 14:00 Pulse Ox 95 06/08/25 14:00 Oxygen Delivery Method Room Air 06/08/25 14:00 BMI result Body Mass Index 27.9 Tobacco/Smoking Status: Tobacco use Status Tobacco use date assessed 12/15/24 06/08/25 14:05 Patient Tobacco Use Status Never used Tobacco 06/08/25 14:05 PHQ-9: PHQ-9 Score PHQ-9: Total score 0 06/08/25 14:08 Depression Screening Interpretation: Negative Thrive Assessment: Date of Thrive Assessment Date Thrive assessed 12/15/24 06/08/25 14:05 Currently or been in a relationship where the following occur: No concerns reported Coding Level of Care Code Est Pt Level 4 (54005) Add On Problem Visit Only Diagnoses Heart palpitations R00.2 Additional Codes MARCELA-7 Assessment Billing - MARCELA-7 Assessment Tool: MARCELA-7 Assessment 99545 ([id number]) PHQ-9 - 59570 - PHQ-9 Billing: Yes ([id number]) Assessment & Plan Assessment & Plan (1) Heart palpitations: Code(s): R00.2 - Palpitations Category: Medical Plan: History of Present Illness - The patient is an 80-year-old male presenting for a follow-up visit. - He reports he is in good health and has no current concerns. - The patient had a stress test in November of the current year, which was normal. - Blood work was completed in December and was noted to be fine. - He has received his influenza vaccination. - His current medications include Eliquis twice daily, vitamin C, flecainide, finasteride for the prostate, metoprolol, and tamsulosin. - The patient states he does not need refills as [facility] manages them. Social History - The patient lives with his . - He has seven grandchildren who visit him for one day during the holiday. Review of Systems - General: Denies any health concerns. Physical Exam General: Cooperative and healthy appearing Nutritional Appearance: Well nourished Orientation/consciousness: Patient oriented x3 Limitations: No limitations Head: Normal to inspection General: Appearance normal, both eyes and all related structures Neck: Normal visual inspection Chest: Normal palpation of entire chest wall Respiratory: Normal respiratory effort Neurology: Patient oriented x3 Results - Tests and Diagnostics: A stress test performed in November of this year was fine. - Labs: Blood work from December was fine. Plan - Repeat blood work next year. - The patient will continue his current medications, with refills managed by [facility]. - Recommended follow-up in six months. Discussion Notes I reviewed the patient's recent stress test and blood work results, both of which were normal. We confirmed he has received his flu shot. I advised that his next blood work can be done next year, and we will follow up on his overall health in six months. Patient Instructions - Continue taking your current medications as prescribed by your doctors. - Your lab work does not need to be repeated until next year. - We will see you back in the office in six months for your next appointment.
== END 2025-06-08 14:26 | disposition home or self-care (01) ==
LOC: HO.HMCSH 13:54
PROVIDERS: PCP Internal Medicine; Visit Provider Internal Medicine
DX: R00.2 Palpitations (principal)

== ENCOUNTER → 2025-06-08 13:54 | Outpatient (BNVA) | payer MEDICARE, SELFPAY | PROVIDERS: PCP Internal Medicine; Visit Provider Internal Medicine | DX: R00.2 Palpitations (principal) | CPT/HCPCS: 96127; 99212 ==